=== PATIENT | female | born 1965 | race African-American/Black ===

== ENCOUNTER 2019-10-26 10:23 | Outpatient (CLI) | payer OTHER, SELFPAY ==
--- NOTE | ~2019-10-26 | MM_ITS ---
EXAMINATION: MM screening sea BI w bella HISTORY: Screening mammogram, history of left breast cancer TECHNIQUE: Craniocaudal and mediolateral oblique 3-D tomosynthesis images were obtained and synthetic 2-D images were generated. CAD analysis was submitted and interpreted. COMPARISON: 09/06/2018, 08/19/2017, 08/02/2016 BREAST PARENCHYMAL COMPOSITION: The breasts are heterogeneously dense, which may obscure small masses . FINDINGS: Stable lumpectomy changes are noted in the left breast. There is no evidence of suspicious mass, calcification, or architectural distortion to suggest malignancy in either breast. There has be en no suspicious interval change. IMPRESSION: 1. No mammographic evidence of malignancy. 2. Recommend routine screening mammography in one year. BI-RADS Category 2: Benign finding(s). Reviewed, dictated and finalized at location A.
== END 2019-10-26 10:24 | disposition home or self-care (01) ==
LOC: ANHIMG 10:26
PROVIDERS: PCP Family Medicine Adolescent Medicine; Visit Provider Family Medicine Adolescent Medicine
DX: Z12.31 Encounter for screening mammogram for malignant neoplasm of breast (principal)
CPT/HCPCS: 77063; 77067

== ENCOUNTER → 2020-06-26 07:57 | Outpatient (CLI) | payer OTHER, SELFPAY ==
--- NOTE | ~2020-06-26 | MMUS_ITS ---
EXAMINATION: MM diagnostic sea BI w bella, US breast BI limited HISTORY: Palpable bilateral breast abnormalities. Breast pain. TECHNIQUE: Additional 3-D tomosynthesis images of the breasts were performed and synthetic 2-D images were generated. CAD analysis was submitted and interpreted. High resolution limited bilateral breast ultrasound was performed. COMPARISON: Comparison to multiple prior studies sequentially, with oldest reviewed study dated 07/29. BREAST PARENCHYMAL COMPOSITION: The breasts are heterogenously dense, which may obscure small masses. FINDINGS: MAMMOGRAPHIC FINDINGS: There are benign bilateral breast calcifications. There is a benign partially calcified mass in the u pper outer quadrant of the right breast with a shell calcification, likely benign oil cysts. No discr ete mass in the left breast. There are surgical changes in the lower central aspect of the left breas t posteriorly. ULTRASOUND: Right breast ultrasound: At 12:00, 3.5 cm from the nipple, there is an oval circumscribed hypoechoic mass with posterior shadowing measuring 7 x 6 x 7 mm. No associated vascularity. Left breast ultrasound: At 2:00, 3.5 cm from the nipple in the area of palpable concern there is a 5 mm hypoechoic mass with posterior shadowing. Irregular margins. No internal vascularity. IMPRESSION: 1. Benign mass in the upper outer quadrant of the right breast corresponds the palpable abnormality, compatible with an oil cyst. There is corresponding mass by ultrasound measuring up to 7 mm. Routine follow-up of the right breast recommended. 2. Irregular shaped hypoechoic mass of the left breast corresponds to the area of palpable concern me asuring up to 5 mm. Ultrasound-guided left breast biopsy recommended. BI-RADS category 4, suspicious findings. Reviewed, dictated and finalized at location A. IMPRESSION: 1. Benign mass in the upper outer quadrant of the right breast corresponds the palpable abnormality, compatible with an oil cyst. There is corresponding mass by ultrasound measuring up to 7 mm. Routine follow-up of the right breast recom mended. 2. Irregular shaped hypoechoic mass of the left breast corresponds to the area of palpable concern measuring up to 5 mm. Ultrasound-guided left breast biopsy recommended. BI-RADS category 4, suspicious findings.
== END ==
PROVIDERS: PCP Family Medicine Adolescent Medicine; Visit Provider Surgery
DX: N64.59 Other signs and symptoms in breast (principal); R92.8 Other abnormal and inconclusive findings on diagnostic imaging of breast
CPT/HCPCS: 76642; 77062; 77066; G0279

== ENCOUNTER 2020-07-01 09:27 | Outpatient (CLI) | payer OTHER, SELFPAY ==
--- NOTE | ~2020-07-01 | MR_ITS ---
EXAMINATION: MR breast BI wo/w con INDICATION: Personal history of malignant neoplasm of the breast TECHNIQUE: Axial VIBRANT pre and dynamic post contrast, Sagittal VIBRANT post contrast, Axial T2 STIR ASSET COMPARISON: 06/17/2011 CONTRAST: Multihance, 13 cc BREAST COMPOSITION: Heterogeneous fibroglandular tissue FINDINGS: A 14 mm cyst is noted in the right hepatic lobe. RIGHT BREAST: There is mild background parenchymal enhancement. No abnormal enhancement is present af ter contrast administration. No pathologically enlarged axillary or internal mammary lymph nodes are identified. LEFT BREAST: There is mild background parenchymal enhancement. No abnormal enhancement is present aft er contrast administration. No pathologically enlarged axillary or internal mammary lymph nodes are i dentified. Architectural distortion and skin thickening of the left breast are consistent with prior breast cancer therapy. No suspicious mass is identified to correlate with the ultrasound finding desc ribed on recent diagnostic workup. IMPRESSION: 1. Postsurgical changes in the left breast without MRI evidence of malignancy. BI-RADS Category 2: Benign finding(s). Reviewed, dictated and finalized at location A.
[2020-07-01 10:27] LABS: Estimated Glomerular Filt Rate > 60
== END 2020-07-01 09:28 | disposition home or self-care (01) ==
PROVIDERS: PCP Family Medicine Adolescent Medicine; Visit Provider Surgery
DX: N60.11 Diffuse cystic mastopathy of right breast (principal); Z85.3 Personal history of malignant neoplasm of breast; N60.12 Diffuse cystic mastopathy of left breast; N63.0 Unspecified lump in unspecified breast; Z98.890 Other specified postprocedural states
CPT/HCPCS: 77049; A9577; C8908

== ENCOUNTER 2020-07-09 11:17 | Outpatient (CLI) | payer OTHER, SELFPAY ==
--- NOTE | ~2020-07-09 | US_ITS ---
EXAMINATION: Consultation US HISTORY: Patient with history of left breast cancer presents for biopsy of a left breast mass. TECHNIQUE: Limited left breast ultrasound was performed. COMPARISON: 06/26/2020 and MRI dated 07/01/2020 FINDINGS: No discrete mass is identified for biopsy targeting. With real-time scanning, the area ques tioned on recent diagnostic evaluation appears to reflect a scar from patient's prior reduction mammo plasty. IMPRESSION: No specific ultrasound targeted identified for biopsy. Clinical follow-up and routine screening are r ecommended. BI-RADS Category 2: Benign finding(s). Reviewed, dictated and finalized at location A. IMPRESSION: No specific ultrasound targeted identified for biopsy. Clinical follow-up and r outine screening are recommended. BI-RADS Category 2: Benign finding(s).
== END 2020-07-09 11:18 | disposition home or self-care (01) ==
PROVIDERS: PCP Family Medicine Adolescent Medicine; Visit Provider Surgery
DX: N63.0 Unspecified lump in unspecified breast (principal)
CPT/HCPCS: 99199

== ENCOUNTER 2021-02-04 11:54 | Outpatient (CLI) | payer OTHER, SELFPAY ==
--- NOTE | ~2021-02-04 | MMUS_ITS ---
EXAMINATION: MM diagnostic sea LT w bella, US breast LT complete HISTORY: Personal history of malignant neoplasm of the breast; status post partial left mastectomy in 2012 TECHNIQUE: Full field and spot ML, MLO and craniocaudal 3-D tomosynthesis images of the left breast w ere performed and synthetic 2-D images were generated. CAD analysis was submitted and interpreted. Hi gh resolution complete left breast ultrasound including all 4 quadrants and subareolar area was perfo rmed. COMPARISON: 07/01/2020 MRI breast 06/26/2020 bilateral diagnostic mammogram and limited bilateral breast ultrasound 10/26/2019, 09/06/2018, 08/19/2017 bilateral digital screening mammogram examinations BREAST PARENCHYMAL COMPOSITION: The breasts are heterogeneously dense, which may obscure small masses . FINDINGS: MAMMOGRAPHIC FINDINGS: Surgical clips are noted deep in the posterior mid to lower central left breast post left partial mas tectomy. There is a biopsy marker in the upper outer left breast. There is stable asymmetry and architectural distortion on the left likely secondary to postoperative change. No interval suspicious mass or new architectural distortion or new retraction is evident. The re are scattered benign calcifications. No significant change since recent mammograms is noted. ULTRASOUND: No suspicious mass or shadowing is detected. IMPRESSION: 1. Status post left partial mastectomy for breast cancer; no evidence of malignancy 2. Routine mammographic screening is recommended, in additional to any additional imaging follow-up a s appropriate for this patient with personal history of breast cancer BI-RADS Category 2: Benign finding(s). Reviewed, dictated and finalized at location A. IMPRESSION: 1. Status post left partial mastectomy for breast cancer; no evidence of malign neal 2. Routine mammographic screening is recommended, in additional to any addition al imaging follow-up as appropriate for this patient with personal history of b reast cancer BI-RADS Category 2: Benign finding(s).
== END 2021-02-04 11:55 | disposition home or self-care (01) ==
LOC: ANHIMG 11:57
PROVIDERS: PCP Family Medicine Adolescent Medicine; Visit Provider Surgery
DX: Z85.3 Personal history of malignant neoplasm of breast (principal)
CPT/HCPCS: 76641; 77061; 77065; G0279

== ENCOUNTER 2021-04-20 14:34 | Emergency (ER) | payer OTHER, SELFPAY ==
[2021-04-20 14:43] VITALS: BP 196/126; PULSE 76; RESP 20; TEMP 36.2; O2SAT 100
--- NOTE | 2021-04-20 16:23 | ECG_ITS ---
Measurements Intervals [place] Rate: 74 P: 28 WA: 150 QRS: -14 QRSD: 75 T: 8 QT: 398 QTc: 443 Interpretive Statements SINUS RHYTHM DELAYED PRECORDIAL R/S TRANSITION BASELINE ARTIFACT- I, III, AVL BORDERLINE ECG Electronically Signed On 04-20-2021 17:05:47 [employer] SYSTEM[employer] TECHNICIAN by Romeo Denson D.O.
== END 2021-04-20 17:20 | disposition left against medical advice (07) ==
PROVIDERS: Emergency Provider Emergency Medicine; PCP Family Medicine Adolescent Medicine
DX: I10 Essential (primary) hypertension (principal)
CPT/HCPCS: 93005; 99199

== ENCOUNTER 2021-09-25 08:58 | Outpatient (CLI) | payer OTHER, SELFPAY ==
--- NOTE | ~2021-09-25 | MM_ITS ---
EXAMINATION: MM screening sea BI w bella HISTORY: Screening TECHNIQUE: Craniocaudal and mediolateral oblique 3-D tomosynthesis images were obtained and synthetic 2-D images were generated. CAD analysis was submitted and interpreted. COMPARISON: Comparison to multiple prior studies sequentially, with oldest reviewed study dated 08/02. BREAST PARENCHYMAL COMPOSITION: The breasts are heterogeneously dense, which may obscure small masses . FINDINGS: There is no evidence of suspicious mass, calcification, or architectural distortion to sugg est malignancy in either breast. There has been no suspicious interval change. IMPRESSION: 1. No mammographic evidence of malignancy. 2. Recommend routine screening mammography in one year. BI-RADS Category 1: Negative Reviewed, dictated and finalized at location A.
== END 2021-09-25 08:59 | disposition home or self-care (01) ==
LOC: ANHIMG 08:59
PROVIDERS: PCP Family Medicine Adolescent Medicine; Visit Provider Surgery
DX: Z12.31 Encounter for screening mammogram for malignant neoplasm of breast (principal); Z85.3 Personal history of malignant neoplasm of breast
CPT/HCPCS: 77063; 77067

== ENCOUNTER 2021-10-02 10:26 | Outpatient (CLI) | payer OTHER, SELFPAY ==
--- NOTE | ~2021-10-02 | US_ITS ---
US breast LT complete DATE: 10/02/2021 10:57 INDICATION: Left breast pain at 2-4:00 area TECHNIQUE: Real-time imaging of complete left breast including all 4 quadrants and subareolar area COMPARISON: 09/25/2021 bilateral screening mammogram 02/04/2021 diagnostic left mammogram and complete left breast ultrasound 07/01/2020 bilateral MR breast examination 06/26/2020 bilateral diagnostic mammography and bilateral Limited breast ultrasound FINDINGS: At the area of clinical complaint of left breast pain at 1:00 2 cm from nipple there is an antiparallel irregular approximately 5 mm wide 6.4 mm deep hypoechoic area with posterior shadowing. Ultrasound-guided biopsy is recommended. There is some architectural distortion and shadowing at 6:00 at the partial mastectomy scar. IMPRESSION: Irregular anti-parallel 5 x 6.4 mm hypoechoic area with posterior shadowing at 1:00 2 cm from nipple; ultrasound-guided biopsy is recommended. BI-RADS Category 4: Suspicious abnormality; biopsy should be considered Dr. Lerma telephoned the report and ultrasound-guided biopsy recommendation of the left breast at 1:00 2 cm from the nipple on 09/28/[address] Lomax's Temperature Regulator Elissa. Reviewed, dictated and finalized at Location A. Reviewed, dictated and finalized at location A. IMPRESSION: Irregular anti-parallel 5 x 6.4 mm hypoechoic area with posterior s hadowing at 1:00 2 cm from nipple; ultrasound-guided biopsy is recommended. BI-RADS Category 4: Suspicious abnormality; biopsy should be considered Dr. Lerma telephoned the report and ultrasound-guided biopsy recommendation of t he left breast at 1:00 2 cm from the nipple on 09/28/20[address] Jane schultz's Temperature Regulator Elissa.
== END 2021-10-02 10:27 | disposition home or self-care (01) ==
PROVIDERS: PCP Family Medicine Adolescent Medicine; Visit Provider Surgery
DX: N64.4 Mastodynia (principal); R92.8 Other abnormal and inconclusive findings on diagnostic imaging of breast
CPT/HCPCS: 76641

== ENCOUNTER 2021-10-20 08:42 | Outpatient (CLI) | payer OTHER, SELFPAY ==
--- NOTE | ~2021-10-20 | MMUS_ITS ---
EXAMINATION: US breast biopsy LT w image, MM post biopsy invasive LT DATE: 10/20/2021 10:15 (accession [id number]), 10/20/2021 10:14 (accession [id number]) INDICATION: Left breast pain and area of posterior acoustic shadowing in the upper outer quadrant of the left breast Ultrasound-guided core biopsy is requested to evaluate for malignancy. TECHNIQUE AND FINDINGS: The risks and potential benefits of the procedure were discussed with the patient including bleeding and infection. A time out was performed. The skin of the left breast was prepared and draped in usual sterile fashion. 1% lidocaine was used for superficial anesthesia. 1% lidocaine with epinephrine was used for deep anesthesia. A vacuum-assisted biopsy gun needle was advanced through to the outer edge of the region of interest from a lateral approach utilizing sonographic guidance. A total of three tissue core samples were obt ained through the lesion. A tissue marker clip was then placed at the biopsy site. Hemostasis was ach ieved. A sterile bandage was applied. The patient tolerated procedure well and there was no evidence of immediate complication. The patient was given verbal instructions to return to the contact our institution in the event of severe breast pain or rapid breast enlargement. A two view left breast mammogram was obtained to document tissue m arker clip placement. IMPRESSION: 1. Successful ultrasound-guided vacuum-assisted biopsy of left breast mass with tissue marker placeme nt. Reviewed, dictated and finalized at location A. IMPRESSION: 1. Successful ultrasound-guided vacuum-assisted biopsy of left breast mass with tissue marker placement.
== END 2021-10-20 08:43 | disposition home or self-care (01) ==
PROVIDERS: PCP Family Medicine Adolescent Medicine; Visit Provider Surgery
DX: N63.0 Unspecified lump in unspecified breast (principal)
CPT/HCPCS: 19083; 88305; A4648

== ENCOUNTER 2022-06-11 12:51 | Emergency (ER) | payer OTHER, SELFPAY ==
--- NOTE | ~2022-06-11 | XR_ITS ---
EXAMINATION: XR ankle LT min 3V DATE: 06/11/2022 13:29 INDICATION: Left ankle pain. TECHNIQUE: 4 views of left ankle were obtained. COMPARISON: None. FINDINGS: Bone alignment is normal. No fracture. Joint spaces are normal. IMPRESSION: 1. Normal left ankle. Reviewed, dictated and finalized at location A. T OF [facility] CLEARER IMPRESSION: 1. Normal left ankle.
[2022-06-11 13:01] VITALS: BP 152/92; PULSE 70; RESP 14; TEMP 35.8; O2SAT 100
[2022-06-11 13:06] VITALS: BP 152/92; PULSE 70; RESP 14; TEMP 35.8; O2SAT 100
--- NOTE | 2022-06-11 13:11 | ED.LOWEXIN ---
HPI - Extremity Injury (Lower) General Chief Complaint: Extremity Injury, Lower Stated Complaint: left foot pain Time Seen by Provider: 06/11/22 13:11 Source: patient Mode of arrival: ambulatory Limitations: no limitations History of Present Illness HPI Narrative: 56-year-old female presents with complaint pain to left ankle, lateral aspect. States she noticed pain when she woke up this morning. Denies injury. Denies any new footwear or exercises. Took 800 mg ibuprofen prior to arrival. ambulatory with limp. 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 all systems reviewed and negative except as noted above. Related Data Allergies Allergy/AdvReac Type Severity Reaction Status Date / Time Sulfa (Sulfonamide Allergy Unknown swelling Verified 06/11/22 13:06 Antibiotics) Review of Systems Review of Systems: CONSTITUTIONAL: Denies fever, chills, or sweats. EYES: Denies visual changes, redness, or discharge. ENT: Denies rhinorrhea, congestion, sore throat, or otalgia. CARDIOVASCULAR: Denies chest pain, palpitations, or edema. RESPIRATORY: Denies cough or dyspnea. GASTROINTESTINAL: Denies abdominal pain, nausea, vomiting, or diarrhea. GENITOURINARY: Denies dysuria or hematuria. SKIN: Denies rash or itching. MUSCULOSKELETAL: Denies back pain . Reports pain to left lateral ankle. NEUROLOGIC: Denies headache, numbness, or weakness. PSYCHIATRIC: Denies anxiety or depression. All other systems reviewed are negative, except as documented in HPI. [facility] Past Medical History Medical History Breast CA History of blood transfusion History of kidney stones HTN (hypertension) Surgical History Surgical History H/O breast augmentation fat transfer H/O dilation and curettage H/O lumpectomy H/O: hysterectomy History of bilateral breast reduction surgery Family History Family History Father Diabetes mellitus Hypertension Mother Diabetes mellitus Hypertension Cerebrovascular accident Sibling Multiple sclerosis Other Diabetes mellitus Cerebrovascular accident Hypertension Other Acute myocardial infarction Other Family history of throat cancer Social History Social History (Reviewed 12/09/21 @ 14:07 by KAYLIN Hatch Smoking status: Current every day smoker Tobacco type: cigarettes Second hand tobacco smoke exposure: Yes Alcohol intake: current Drinks per week: 14 Substance use: never Substance use type: does not use Living arrangements: with family Occupation/Education: occupation 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 There is no relevant family history pertinent to the presenting complaint. Exam Narrative: GENERAL: This is a well-nourished, well-developed patient, in no apparent distress. HEAD: normocephalic, atraumatic. EYES: PERRL. Sclera clear/white. Vision is grossly intact. EARS: External ears normal NOSE: External nose normal NECK: Neck supple, non-tender without lymphadenopathy, masses or thyromegaly. CARDIOVASCULAR: Regular rate and rhythm without murmurs, gallops, or rubs. RESPIRATORY: Clear to auscultation. Breath sounds equal bilaterally. No wheezes, rales, or rhonchi. SKIN: warm, Dry, intact with no suspicious lesions or rash, good texture and turgor. NEURO: awake, alert, and oriented to person, place and time. There were no obvious focal neurologic abnormalities. EXTREMITIES:Tenderness along the left ATF t
== END 2022-06-11 13:52 | disposition home or self-care (01) ==
PROVIDERS: Emergency Provider Nurse Practitioner Family; PCP Family Medicine Adolescent Medicine
DX: S96.912A Strain of unspecified muscle and tendon at ankle and foot level, left foot, initial encounter (principal); I10 Essential (primary) hypertension; Z85.3 Personal history of malignant neoplasm of breast; F17.210 Nicotine dependence, cigarettes, uncomplicated; X58.XXXA Exposure to other specified factors, initial encounter
CPT/HCPCS: 73610; 99213; G0463

== ENCOUNTER 2022-09-29 10:17 | Outpatient (CLI) | payer OTHER, SELFPAY ==
--- NOTE | ~2022-09-29 | MM_ITS ---
EXAMINATION: MM screening sea BI w bella HISTORY: Screening mammogram TECHNIQUE: Craniocaudal and mediolateral oblique 3-D tomosynthesis images were obtained and synthetic 2-D images were generated. CAD analysis was submitted and interpreted. COMPARISON: 10/20/2021 left ultrasound guided breast biopsy; results were benign fibrofatty tissue. 09/28/2021 complete left breast ultrasound 09/25/2021 bilateral screening mammogram 02/04/2021 diagnostic left mammogram and complete left breast ultrasound 07/01/2020 MRI breast 06/26/2020 diagnostic mammogram and Limited bilateral breast ultrasound 10/26/2019 bilateral screening mammogram BREAST PARENCHYMAL COMPOSITION: The breasts are heterogeneously dense, which may obscure small masses . FINDINGS: There is stable postsurgical changes from left partial mastectomy since 10/26/2019. There is a biopsy marker in the upper inner left breast. There are scattered bilateral benign calcifications. There is no evidence of suspicious mass, calcifi cation, or architectural distortion to suggest malignancy in either breast. There has been no suspici ous interval change. IMPRESSION: 1. No mammographic evidence of malignancy. 2. Recommend routine screening mammography in one year. BI-RADS Category 2: Benign finding(s). Reviewed, dictated and finalized at location A.
== END 2022-09-29 10:18 | disposition home or self-care (01) ==
LOC: ANHIMG 10:20
PROVIDERS: PCP Family Medicine Adolescent Medicine; Visit Provider Surgery
DX: Z12.31 Encounter for screening mammogram for malignant neoplasm of breast (principal)
CPT/HCPCS: 77063; 77067

== ENCOUNTER 2022-10-29 08:25 | Emergency (ER) | payer OTHER, SELFPAY ==
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
[2022-10-29 08:43] VITALS: BP 148/100; PULSE 77; RESP 16; TEMP 36.9; O2SAT 100
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
== END 2022-10-29 09:41 | disposition home or self-care (01) ==
PROVIDERS: Emergency Provider Nurse Practitioner; PCP Family Medicine Adolescent Medicine
DX: S16.1XXA Strain of muscle, fascia and tendon at neck level, initial encounter (principal); S39.012A Strain of muscle, fascia and tendon of lower back, initial encounter; V43.52XA Car driver injured in collision with other type car in traffic accident, initial encounter; I10 Essential (primary) hypertension; Z85.3 Personal history of malignant neoplasm of breast; F17.210 Nicotine dependence, cigarettes, uncomplicated
CPT/HCPCS: 72040; 99213; G0463

== ENCOUNTER 2023-11-04 09:55 | Outpatient (CLI) | payer OTHER, SELFPAY ==
--- NOTE | ~2023-11-04 | MM_ITS ---
EXAMINATION: MM screening sea BI w bella HISTORY: Screening TECHNIQUE: Craniocaudal and mediolateral oblique 3-D tomosynthesis images were obtained and synthetic 2-D images were generated. CAD analysis was submitted and interpreted. COMPARISON: Comparison to multiple prior studies sequentially, with oldest reviewed study dated 10/25. BREAST PARENCHYMAL COMPOSITION: Not dense: There are scattered areas of fibroglandular density. FINDINGS: There is increasing density of asymmetric tissue medial aspect of the left breast on CC vie w. The right breast is stable without evidence for malignancy. IMPRESSION: 1. Increasing density of left breast global asymmetry located medially on CC view. 2. Additional mammographic views and possible breast ultrasound are recommended. BI-RADS Category 0: Incomplete: Needs additional imaging evaluation. Reviewed, dictated and finalized at location B. IMPRESSION: 1. Increasing density of left breast global asymmetry located medially on CC vi ew. 2. Additional mammographic views and possible breast ultrasound are recommended . BI-RADS Category 0: Incomplete: Needs additional imaging evaluation.
== END 2023-11-04 09:56 | disposition home or self-care (01) ==
LOC: ANHIMG 09:58
PROVIDERS: PCP Family Medicine Adolescent Medicine; Visit Provider Family Medicine Adolescent Medicine
DX: Z12.31 Encounter for screening mammogram for malignant neoplasm of breast (principal); R92.8 Other abnormal and inconclusive findings on diagnostic imaging of breast
CPT/HCPCS: 77063; 77067

== ENCOUNTER 2023-11-10 09:30 | Outpatient (CLI) | payer OTHER, SELFPAY ==
--- NOTE | ~2023-11-10 | XR_ITS ---
Bilateral temporal mandibular joint radiographs, with open and closed mouth positioning Clinical history: Arthralgia of right TMJ FINDINGS: No fracture or dislocation seen. There is normal anterior translation of the bilateral marybel ibular condyles on open mouth views. No significant degenerative change. Soft tissues are unremarkabl e. IMPRESSION: No significant abnormality seen. Reviewed, dictated and finalized at location .
== END 2023-11-10 09:31 | disposition home or self-care (01) ==
LOC: ANHIMG 09:31
PROVIDERS: PCP Family Medicine Adolescent Medicine; Visit Provider Nurse Practitioner Family
DX: M26.621 Arthralgia of right temporomandibular joint (principal)
CPT/HCPCS: 70330

== ENCOUNTER 2023-11-24 12:10 | Outpatient (CLI) | payer OTHER, SELFPAY ==
--- NOTE | ~2023-11-24 | MMUS_ITS ---
EXAMINATION: MM diagnostic sea LT w bella, US breast LT complete HISTORY: Follow-up left breast asymmetry TECHNIQUE: Additional 3-D tomosynthesis images of the left breast were performed and synthetic 2-D im ages were generated. CAD analysis was submitted and interpreted. High resolution complete left breast ultrasound was performed. COMPARISON: No prior studies for comparison. BREAST PARENCHYMAL COMPOSITION: Dense: The breasts are heterogeneously dense, which may obscure small masses FINDINGS: MAMMOGRAPHIC FINDINGS: There is distortion in the left breast in the upper outer quadrant, consistent with previous lumpecto my site. There is dense fibroglandular tissue inferiorly in the left breast. ULTRASOUND: Complete US of all 4 quadrants of the breast/s and retroareolar region was reviewed. There is irregul ar hypoechoic soft tissue in the left breast at 1:00, 4 cm from the nipple in the area of previous shen mpectomy. This corresponds to area of patient pain. No other discrete areas of abnormal echogenicity are seen. No focal solid or cystic masses. IMPRESSION: 1. Probable benign postoperative changes of the left breast. 2. Recommend 6 month follow-up diagnostic left mammogram Limited left breast ultrasound recommended. BI-RADS category 3, probably benign findings. Reviewed, dictated and finalized at location B. IMPRESSION: 1. Probable benign postoperative changes of the left breast. 2. Recommend 6 month follow-up diagnostic left mammogram Limited left breast ul trasound recommended. BI-RADS category 3, probably benign findings.
== END 2023-11-24 12:11 | disposition home or self-care (01) ==
LOC: ANHIMG 12:10
PROVIDERS: PCP Family Medicine Adolescent Medicine; Visit Provider Family Medicine Adolescent Medicine
DX: R92.8 Other abnormal and inconclusive findings on diagnostic imaging of breast (principal)
CPT/HCPCS: 76641; 77061; 77065; G0279

== ENCOUNTER 2024-05-28 10:35 | Outpatient (CLI) | payer OTHER, SELFPAY ==
--- NOTE | ~2024-05-28 | MMUS_ITS ---
EXAMINATION: US breast LT limited, MM diagnostic sea BI w bella HISTORY: Six-month follow-up left breast asymmetry TECHNIQUE: Additional 3-D tomosynthesis images of the breasts were performed and synthetic 2-D images were generated. CAD analysis was submitted and interpreted. High resolution Limited left breast ultr asound was performed. COMPARISON: Comparison to multiple prior studies sequentially, with oldest reviewed study dated 01/10. BREAST PARENCHYMAL COMPOSITION: Not dense: There are scattered areas of fibroglandular density. FINDINGS: MAMMOGRAPHIC FINDINGS: The breasts are stable. No new masses, calcifications or architectural distortion in either breast to suggest malignancy. There are postsurgical changes in the lower aspect of the left breast. ULTRASOUND: Limited left breast ultrasound: At 1:00, 4 cm from the nipple there is a heterogeneous hypoechoic are a with posterior shadowing and no significant internal vascularity. This area has similar morphology to ultrasound dated 11/24/2023. IMPRESSION: 1. Stable bilateral mammogram and Limited left breast ultrasound. 2. Given one year of interval stability, recommend 12 month followup bilateral mammogram and Limited left breast ultrasound. BI-RADS category 3, probably benign findings. Reviewed, dictated and finalized at location B. 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 Stable bilateral mammogram and Limited left breast ultrasound. 2. Given one year of interval stability, recommend 12 month followup bilateral mammogram and Limited left breast ultrasound. BI-RADS category 3, probably benign findings.
--- OUTSIDE RECORDS SUMMARY | 2024-05-28 13:43 | XMS_ITS | Continuity of Care Document ---
Author Name [facility] Organization 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 Unavailable Unavailable Problems Combined list of problems from [facility] and [facility] facilities. It does not include entries that were removed or entered in error. Problem Status Onset Date Problem Type Date of Resolution Comments Source Benign essential hypertension Active Condition [facility] Chronic depression Active Condition [facility] Sciatica Active Condition [facility] Diagnosis: ICD-10-CM F43.12 Post-traumatic stress disorder, chronic Active Diagnosis [facility] Diagnosis: ICD-10-CM F32.A Depression, unspecified Active Diagnosis [facility] Diagnosis: ICD-10-CM M47.26 Other spondylosis with radiculopathy, lumbar region Active Diagnosis [facility] Diagnosis: ICD-10-CM M54.32 Sciatica, left side Active Diagnosis [facility] Mario RUBIO [facility] Diagnosis: ICD-10-CM F33.1 Major depressive disorder, recurrent, moderate Active Diagnosis [facility] Rina POSADA [facility] Diagnosis: ICD-10-CM Z23 Encounter for immunization Active Diagnosis [facility] Diagnosis: ICD-10-CM M51.36 Other intervertebral disc degeneration, lumbar region Active Diagnosis [facility] Diagnosis: ICD-10-CM M54.89 Other dorsalgia Active Diagnosis [facility] Medications Combined list of outpatient medications from [facility] facilities.Medications provided include 1) outpatient medications from the last 15 months, and 2) patient-reported medications. Medication Details Route Status Patient Instructions Prescription Expires Prescription Number Last Dispense Date Ordering Provider Order Date Order Qty Source amLODIPine (U/D) 5 MG ORAL TAB TAKE ONE TABLET BY MOUTH ONCE A DAY Active 07/15/2024 [id number] SYDNEY MCGHEE 2023 90 [facility] Divcarlosio n AMLODIPINE BESYLATE 5MG TAB TAKE ONE TABLET BY MOUTH ONCE A DAY ORAL ACTIVE 07/15/2024 [id number] TAZIN GRID D 2023 90 [facility] AMLODIPINE BESYLATE 5MG TAB TAKE ONE TABLET BY MOUTH ONCE A DAY ORAL ACTIVE TAZIN GRID D 2021 [facility] BUPROPION HCL 150MG 12HR TAB,SA TAKE TWO TABLETS BY MOUTH ONCE A DAY FOR DEPRESSI ON SWALLOW WHOLE - DO NOT CRUSH OR CHEW. ORAL ACTIVE 05/28/2024 [id number] 4 GBADEBO-TAHMINA KELLY VELIA 2023 180 [facility] LIDOCAINE 5% PATCH APPLY 1 PATCH TO SKIN SITE ONCE A DAY FOR LOCAL ANESTHES IA APPLY PATCH AND PRESS FIRMLY FOR 10-15 SECONDS. KEEP ON FOR 12 HOURS THEN REMOVE PATCH FOR 12 HOURS. TRANSD ERMAL ACTIVE 12/08/2024 [id number] TAZIN GRID D 2023 30 [facility] METOPROLOL SUCCINATE 200MG TAB,SA TAKE ONE-HALF TABLET BY MOUTH ONCE A DAY ORAL ACTIVE TAZIN GRID D 2021 [facility] NALTREXONE (EQV-REVIA) 50MG TAB TAKE ONE-HALF TABLET BY MOUTH ONCE A DAY FOR ASSISTAN CE WITH DEPENDEN CY ORAL ACTIVE 04/21/2025 [id number] 5 GBADEBO-G TAHMINA HIGHTOWER VELIA 2024 15 [facility] NALTREXONE (EQV-REVIA) 50MG TAB TAKE ONE-HALF TABLET BY MOUTH ONCE A DAY FOR 4 DAYS, THEN TAKE ONE TABLET ONCE A DAY FOR ASSISTAN CE WITH DEPENDEN CY ORAL DISCONT INUED (EDIT) 02/28/2025 [id number] 4 GBADEBO-G TAHMINA HIGHTOWER VELIA 2023 28 [facility] Allergies, Adverse Reactions, Alerts Combined list of allergies from [facility] and [facility] facilities. It does not include entries that were removed or entered in error. Substance Category Reaction Severity Reaction type Status Date Reported Comments Source No Known Allergies Drug allergy (disorder) active 03/28/2007 [place] [facility] Immunizations Combined list of available immunizations from the Department of Defense and Veterans Affairs facilities. Immunization Series Date Given Administered By Site Reaction Lot Number CVX Code Drug Coding And Reimbursement Specialist Status Comments Source COVID-19 (PFIZER), MRNA, LNP-S, PF, DIXON-SUCROSE, 30 MCG/0.3 ML (AGES 12+ YEARS) 2023 ZULEIMA DE LA ROSA S RIGHT DELTO ID [id number] 309 complet ed [facility] INFLUENZA, SPLIT VIRUS, TRIVALENT, PF 2023 ZULEIMA DE LA ROSA S LEFT DELTO ID [id number] 140 complet ed [facility] INFLUENZA, INJECTABLE, QUADRIVALENT, PRESERVATIVE FREE 2022 ROBBIE ABEL IN J RIGHT DELTO ID [id number] 150 complet ed [facility] COVID-19 (MODERNA), MRNA, LNP-S, BIVALENT BOOSTER, PF, 50 MCG/0.5 ML OR 25MCG/0.25 ML DOSE 1 2021 229 complet ed MOD; [id number]; 3 [facility] INFLUENZA, INJECTABLE, QUADRIVALENT 2021 158 complet ed [facility] COVID-19 (MODERNA), MRNA, LNP-S, PF, 100 MCG/0.5ML DOSE OR 50 MCG/0.25ML DOSE 3 2021 207 complet ed MOD; [id number]; 2 [facility] ZOSTER RECOMBINANT 2 2020 187 complet ed [facility] COVID-19 (MODERNA), MRNA, LNP-S, PF, 100 MCG OR 50 MCG DOSE 3 2020 207 complet ed [facility] INFLUENZA, UNSPECIFIED FORMULATION 2020 88 complet ed [facility] TDAP 2020 115 complet ed [facility] ZOSTER RECOMBINANT 1 2020 187 complet ed [facility] COVID-19 (MODERNA), MRNA, LNP-S, PF, 100 MCG/0.5 ML DOSE 2 2020 207 complet ed [facility] COVID-19 (MODERNA), MRNA, LNP-S, PF, 100 MCG/0.5 ML DOSE 1 2020 207 complet ed [facility] INFLUENZA, SEASONAL, INJECTABLE 1 2013 141 complet ed [facility] Results Combined list of recent chemistry, hematology and other laboratory results from Department of Defense and Veterans Affairs, ranging from 15 months to all on record, depending upon the facility. Order Name Results Value Reference Range Date Interpretation Specimen Comments Source CBC LEUKOCYTES [#/VOLUME] IN BLOOD BY AUTOMATED COUNT 8.3 10*3/u L 3.6 - 11.2 03/09 Specimen Type: BLOOD No comment entered. Ordering Provider: TONI MCGHEE RID Report Released Date/Time: Feb 28, 2024 02:54 PM Reporting Lab: [facility] [address] [facility] [phone] Performing Lab: [facility] [address] [place] [phone] [facility] CBC ERYTHROCYTES [#/VOLUME] IN BLOOD BY AUTOMATED COUNT 4.71 10*6/u L 3.60 - 5.00 03/09 Specimen Type: BLOOD No comment entered. Ordering Provider: TONI MCGHEE RID Report Released Date/Time: Feb 28, 2024 02:54 PM Reporting Lab: [facility] [address] [facility] [phone] Performing Lab: [facility] [address] [place] [phone] [facility] CBC HEMOGLOBIN [MASS/VOLUME ] IN BLOOD 13.6 g/dL 11.0 - 14.9 03/09 Specimen Type: BLOOD No comment entered. Ordering Provider: TONI MCGHEE RID Report Released Date/Time: Feb 28, 2024 02:54 PM Reporting Lab: [facility] [address] [place] [phone] Performing Lab: [address] [address] [facility] CBC HEMATOCRIT [VOLUME FRACTION] OF BLOOD 41.7 32.6 - 43.4 03/09 Specimen Type: BLOOD No comment entered. Ordering Provider: TONI MCGHEE RID Report Released Date/Time: Feb 28, 2024 02:54 PM Reporting Lab: [address] [phone] Performing Lab: [address] [phone] [facility] CBC MCV [ENTITIC VOLUME] BY AUTOMATED COUNT 88.5 fL 80.0 - 100.0 03/09 Specimen Type: BLOOD No comment entered. Ordering Provider: TONI MCGHEE RID Report Released Date/Time: Feb 28, 2024 02:54 PM Reporting Lab: [address] [phone] Performing Lab: [address] [address] [facility] CBC MCH [ENTITIC MASS] BY AUTOMATED COUNT 28.9 pg 27.0 - 34.0 03/09 Specimen Type: BLOOD No comment entered. Ordering Provider: TONI MCGHEE RID Report Released Date/Time: Feb 28, 2024 02:54 PM Reporting Lab: [facility] [address] [place] [phone] Performing Lab: [address] [address] [facility] CBC MCHC [MASS/VOLUME ] BY AUTOMATED COUNT 32.6 g/dL 33.0 - 36.0 03/09 L Specimen Type: BLOOD No comment entered. Ordering Provider: TONI MCGHEE RID Report Released Date/Time: Feb 28, 2024 02:54 PM Reporting Lab: [facility] [address] [place] [phone] Performing Lab: [facility] [address] [facility] [phone] [facility] CBC PLATELETS [#/VOLUME] IN BLOOD BY AUTOMATED COUNT 337 10*3/u L 150 - 400 03/09 Specimen Type: BLOOD No comment entered. Ordering Provider: TONI MCGHEE RID Report Released Date/Time: Feb 28, 2024 02:54 PM Reporting Lab: [facility] [address] [facility] [address] Performing Lab: [facility] [address] [facility] [phone] [facility] CBC PLATELET MEAN VOLUME [ENTITIC VOLUME] IN BLOOD BY AUTOMATED COUNT 9.6 fL 7.5 - 11.2 03/09 Specimen Type: BLOOD No comment entered. Ordering Provider: TONI MCGHEE RID Report Released Date/Time: Feb 28, 2024 02:54 PM Reporting Lab: [facility] [address] [facility] [address] Performing Lab: [facility] [address] [facility] [phone] [facility] CBC ERYTHROCYTE DISTRIBUTION WIDTH [RATIO] BY AUTOMATED COUNT 12.8 11.8 - 15.1 03/09 Specimen Type: BLOOD No comment entered. Ordering Provider: TONI MCGHEE RID Report Released Date/Time: Feb 28, 2024 02:54 PM Reporting Lab: [facility] [address] [facility] [phone] Performing Lab: [facility] [address] [facility] [address] [facility] CBC LYMPHOCYTES/ 100 LEUKOCYTES IN BLOOD BY AUTOMATED COUNT 33 03/09 Specimen Type: BLOOD No comment entered. Ordering Provider: TONI MCGHEE RID Report Released Date/Time: Feb 28, 2024 02:54 PM Reporting Lab: [facility] [address] [facility] [phone] Performing Lab: [facility] [address] [facility] [address] [facility] CBC MONOCYTES/10 0 LEUKOCYTES IN BLOOD BY AUTOMATED COUNT 7 03/09 Specimen Type: BLOOD No comment entered. Ordering Provider: TONI MCGHEE RID Report Released Date/Time: Feb 28, 2024 02:54 PM Reporting Lab: [facility] [address] [facility] [phone] Performing Lab: [facility] [address] [place] [phone] [facility] CBC NEUTROPHILS/ 100 LEUKOCYTES IN BLOOD BY AUTOMATED COUNT 59 03/09 Specimen Type: BLOOD No comment entered. Ordering Provider: TONI MCGHEE RID Report Released Date/Time: Feb 28, 2024 02:54 PM Reporting Lab: [facility] [address] [facility] [address] Performing Lab: [facility] [address] [place] [phone] [facility] CBC EOSINOPHILS/ 100 LEUKOCYTES IN BLOOD BY AUTOMATED COUNT 1 03/09 Specimen Type: BLOOD No comment entered. Ordering Provider: TONI MCGHEE RID Report Released Date/Time: Feb 28, 2024 02:54 PM Reporting Lab: [facility] [address] [facility] [phone] Performing Lab: [facility] [address] [place] [phone] [facility] CBC BASOPHILS/10 0 LEUKOCYTES IN BLOOD BY AUTOMATED COUNT 1 03/09 Specimen Type: BLOOD No comment entered. Ordering Provider: TONI MCGHEE RID Report Released Date/Time: Feb 28, 2024 02:54 PM Reporting Lab: [facility] [address] [facility] [phone] Performing Lab: [facility] [address] [place] [phone] [facility] CBC LYMPHOCYTES [#/VOLUME] IN BLOOD BY AUTOMATED COUNT 2.72 10*3/u L 0.77 - 4.50 03/09 Specimen Type: BLOOD No comment entered. Ordering Provider: TONI MCGHEE RID Report Released Date/Time: Feb 28, 2024 02:54 PM Reporting Lab: [facility] [address] [place] [phone] Performing Lab: [facility] [address] [place] [phone] [facility] CBC MONOCYTES [#/VOLUME] IN BLOOD BY AUTOMATED COUNT 0.57 10*3/u L 0.19 - 0.80 03/09 Specimen Type: BLOOD No comment entered. Ordering Provider: TONI MCGHEE RID Report Released Date/Time: Feb 28, 2024 02:54 PM Reporting Lab: [facility] [address] [place] [phone] Performing Lab: [facility] [address] [place] [phone] [place] [address] CBC NEUTROPHILS [#/VOLUME] IN BLOOD BY AUTOMATED COUNT 4.92 10*3/u L 2.10 - 8.00 03/09 Specimen Type: BLOOD No comment entered. Ordering Provider: TONI MCGHEE RID Report Released Date/Time: Feb 28, 2024 02:54 PM Reporting Lab: [facility] [address] [place] [phone] Performing Lab: [facility] [address] [place] [phone] [facility] CBC EOSINOPHILS [#/VOLUME] IN BLOOD BY AUTOMATED COUNT 0.06 10*3/u L 0.00 - 0.60 03/09 Specimen Type: BLOOD No comment entered. Ordering Provider: TONI MCGHEE RID Report Released Date/Time: Feb 28, 2024 02:54 PM Reporting Lab: [facility] [address] [place] [phone] Performing Lab: [facility] [address] [place] [phone] [facility] CBC BASOPHILS [#/VOLUME] IN BLOOD BY AUTOMATED COUNT 0.04 10*3/u L 0.00 - 0.20 03/09 Specimen Type: BLOOD No comment entered. Ordering Provider: TONI MCGHEE RID Report Released Date/Time: Feb 28, 2024 02:54 PM Reporting Lab: [facility] [address] [place] [phone] Performing Lab: [facility] [address] [facility] [phone] [facility] COMPREHENSI VE METABOLIC PANEL CREATININE [MASS/VOLUME ] IN SERUM OR PLASMA 0.67 mg/dL 0.6 - 1.1 03/09 Specimen Type: PLASMA Comment: No hemolysis noted. Ordering Provider: TONI MCGHEE RID Report Released Date/Time: Feb 28, 2024 02:54 PM Reporting Lab: [facility] [address] [place] [phone] Performing Lab: [facility] [address] [place] [phone] [place] [address] COMPREHENSI VE METABOLIC PANEL UREA NITROGEN [MASS/VOLUME ] IN SERUM OR PLASMA 13.3 mg/dL 9.0 - 25.0 03/09 Specimen Type: PLASMA Comment: No hemolysis noted. Ordering Provider: TONI MCGHEE RID Report Released Date/Time: Feb 28, 2024 02:54 PM Reporting Lab: [facility] [address] [place] [phone] Performing Lab: [facility] [address] [place] [phone] [facility] COMPREHENSI VE METABOLIC PANEL GLUCOSE [MASS/VOLUME ] IN SERUM OR PLASMA 86 mg/dL 72 - 99 03/09 Specimen Type: PLASMA Comment: No hemolysis noted. Ordering Provider: TONI MCGHEE RID Report Released Date/Time: Feb 28, 2024 02:54 PM Reporting Lab: [facility] [address] [place] [phone] Performing Lab: [facility] [address] [place] [phone] [facility] COMPREHENSI VE METABOLIC PANEL SODIUM [MOLES/VOLUM E] IN SERUM OR PLASMA 141 meq/L 136 - 145 03/09 Specimen Type: PLASMA Comment: No hemolysis noted. Ordering Provider: TONI MCGHEE RID Report Released Date/Time: Feb 28, 2024 02:54 PM Reporting Lab: [facility] [address] [facility] [phone] Performing Lab: [facility] [address] [facility] [phone] [facility] COMPREHENSI VE METABOLIC PANEL POTASSIUM [MOLES/VOLUM E] IN SERUM OR PLASMA 4.1 meq/L 3.5 - 5 03/09 Specimen Type: PLASMA Comment: No hemolysis noted. Ordering Provider: TONI MCGHEE RID Report Released Date/Time: Feb 28, 2024 02:54 PM Reporting Lab: [facility] [address] [place] [phone] Performing Lab: [facility] [address] [place] [phone] [facility] COMPREHENSI VE METABOLIC PANEL CHLORIDE [MOLES/VOLUM E] IN SERUM OR PLASMA 107 meq/L 98 - 107 03/09 Specimen Type: PLASMA Comment: No hemolysis noted. Ordering Provider: TONI MCGHEE RID Report Released Date/Time: Feb 28, 2024 02:54 PM Reporting Lab: [facility] [address] [place] [phone] Performing Lab: [facility] [address] [place] [phone] [facility] COMPREHENSI VE METABOLIC PANEL CARBON DIOXIDE, TOTAL [MOLES/VOLUM E] IN SERUM OR PLASMA 24 meq/L 22 - 31 03/09 Specimen Type: PLASMA Comment: No hemolysis noted. Ordering Provider: TONI MCGHEE RID Report Released Date/Time: Feb 28, 2024 02:54 PM Reporting Lab: [facility] [address] [place] [phone] Performing Lab: [facility] [address] [place] [phone] [facility] COMPREHENSI VE METABOLIC PANEL CALCIUM [MASS/VOLUME ] IN SERUM OR PLASMA 10.0 mg/dL 8.4 - 10.4 03/09 Specimen Type: PLASMA Comment: No hemolysis noted. Ordering Provider: TONI MCGHEE RID Report Released Date/Time: Feb 28, 2024 02:54 PM Reporting Lab: [facility] [address] [facility] [phone] Performing Lab: [facility] [address] [facility] [address] [facility] COMPREHENSI VE METABOLIC PANEL PROTEIN [MASS/VOLUME ] IN SERUM OR PLASMA 7.6 g/dL 6 - 8.6 03/09 Specimen Type: PLASMA Comment: No hemolysis noted. Ordering Provider: TONI MCGHEE RID Report Released Date/Time: Feb 28, 2024 02:54 PM Reporting Lab: [facility] [address] [facility] [phone] Performing Lab: [facility] [address] [facility] [phone] [facility] COMPREHENSI VE METABOLIC PANEL ALBUMIN [MASS/VOLUME ] IN SERUM OR PLASMA 4.4 g/dL 3.4 - 5 03/09 Specimen Type: PLASMA Comment: No hemolysis noted. Ordering Provider: TONI MCGHEE RID Report Released Date/Time: Feb 28, 2024 02:54 PM Reporting Lab: [facility] [address] [facility] [phone] Performing Lab: [facility] [address] [facility] [address] [facility] COMPREHENSI VE METABOLIC PANEL BILIRUBIN.TO CLAYTON [MASS/VOLUME ] IN SERUM OR PLASMA 0.9 mg/dL 0.2 - 1.2 03/09 Specimen Type: PLASMA Comment: No hemolysis noted. Ordering Provider: TONI MCGHEE RID Report Released Date/Time: Feb 28, 2024 02:54 PM Reporting Lab: [facility] [address] [facility] [phone] Performing Lab: [facility] [address] [facility] [address] [facility] COMPREHENSI VE METABOLIC PANEL ALKALINE PHOSPHATASE [ENZYMATIC ACTIVITY/VOL UME] IN SERUM OR PLASMA 67 U/L 40 - 150 03/09 Specimen Type: PLASMA Comment: No hemolysis noted. Ordering Provider: TONI MCGHEE RID Report Released Date/Time: Feb 28, 2024 02:54 PM Reporting Lab: [address] [phone] Performing Lab: [address] [phone] [place] [address] COMPREHENSI VE METABOLIC PANEL ASPARTATE AMINOTRANSFE RASE [ENZYMATIC ACTIVITY/VOL UME] IN SERUM OR PLASMA 23 U/L 5 - 34 03/09 Specimen Type: PLASMA Comment: No hemolysis noted. Ordering Provider: TONI MCGHEE RID Report Released Date/Time: Feb 28, 2024 02:54 PM Reporting Lab: [address] [address] Performing Lab: [address] [phone] [facility] COMPREHENSI VE METABOLIC PANEL ALANINE AMINOTRANSFE RASE [ENZYMATIC ACTIVITY/VOL UME] IN SERUM OR PLASMA 11 U/L 8 - 40 03/09 Specimen Type: PLASMA Comment: No hemolysis noted. Ordering Provider: TONI MCGHEE RID Report Released Date/Time: Feb 28, 2024 02:54 PM Reporting Lab: [address] [phone] Performing Lab: [address] [phone] [facility] COMPREHENSI VE METABOLIC PANEL GLOMERULAR FILTRATION RATE/1.73 SQ M.PREDICTED [VOLUME RATE/AREA] IN SERUM, PLASMA OR BLOOD BY CREATININE-B ASED FORMULA (CKD-EPI 2020) 102.5 60 03/09 Specimen Type: PLASMA Comment: No hemolysis noted. Ordering Provider: TONI MCGHEE RID Report Released Date/Time: Feb 28, 2024 02:54 PM Reporting Lab: [facility] [address] [place] [phone] Performing Lab: [facility] [address] [facility] [phone] [facility] HGA1C HEMOGLOBIN A1C/HEMOGLOB IN.TOTAL IN BLOOD 5.3 4.0 - 6.0 03/09 Specimen Type: BLOOD No comment entered. Ordering Provider: TONI MCGHEE RID Report Released Date/Time: Feb 28, 2024 02:54 PM Reporting Lab: [facility] [address] [place] [phone] Performing Lab: [facility] [address] [facility] [phone] [facility] LIPID PANEL (STL) CHOLESTEROL [MASS/VOLUME ] IN SERUM OR PLASMA 220 mg/dL 0 - 200 03/09 H Specimen Type: PLASMA Comment: No hemolysis noted. Ordering Provider: TONI MCGHEE RID Report Released Date/Time: Feb 28, 2024 02:54 PM Reporting Lab: [facility] [address] [place] [phone] Performing Lab: [facility] [address] [place] [phone] [facility] LIPID PANEL (STL) TRIGLYCERIDE [MASS/VOLUME ] IN SERUM OR PLASMA 137 mg/dL 0 - 150 03/09 Specimen Type: PLASMA Comment: No hemolysis noted. Ordering Provider: TONI MCGHEE RID Report Released Date/Time: Feb 28, 2024 02:54 PM Reporting Lab: [facility] [address] [place] [phone] Performing Lab: [facility] [address] [place] [phone] [facility] LIPID PANEL (STL) CHOLESTEROL IN LDL [MASS/VOLUME ] IN SERUM OR PLASMA BY CALCULATION 156 mg/dL 03/09 Specimen Type: PLASMA Comment: No hemolysis noted. Ordering Provider: TONI MCGHEE RID Report Released Date/Time: Feb 28, 2024 02:54 PM Reporting Lab: [facility] [address] [place] [phone] Performing Lab: [facility] [address] [facility] [phone] [facility] LIPID PANEL (STL) CHOLESTEROL IN HDL [MASS/VOLUME ] IN SERUM OR PLASMA 37 mg/dL 40 03/09 L Specimen Type: PLASMA Comment: No hemolysis noted. Ordering Provider: TONI MCGHEE RID Report Released Date/Time: Feb 28, 2024 02:54 PM Reporting Lab: [facility] [address] [place] [phone] Performing Lab: [facility] [address] [place] [phone] [facility] TSH W/ REFLEX FT4 (STL) THYROTROPIN [UNITS/VOLUM E] IN SERUM OR PLASMA 0.252 u[IU]/ mL 0.47 - 5 03/09 L Specimen Type: PLASMA No comment entered. Ordering Provider: TONI MCGHEE RID Report Released Date/Time: Feb 28, 2024 02:54 PM Reporting Lab: [facility] [address] [facility] [phone] Performing Lab: [address] [address] [facility] TSH W/ REFLEX FT4 (STL) FREE T4(REFLEX) 1.07 ng/mL 0.7 - 1.48 03/09 Specimen Type: PLASMA No comment entered. Ordering Provider: TONI MCGHEE RID Report Released Date/Time: Feb 28, 2024 02:54 PM Reporting Lab: [facility] [address] [place] [phone] Performing Lab: [address] [address] [facility] VITAMIN D, 25-HYDROXY 25-HYDROXYVI TAMIN D3 [MASS/VOLUME ] IN SERUM OR PLASMA 42.2 ng/mL 30 - 96 03/09 Specimen Type: SERUM No comment entered. Ordering Provider: TONI MCGHEE RID Report Released Date/Time: Feb 28, 2024 02:54 PM Reporting Lab: [facility] [address] [facility] [phone] Performing Lab: [facility] [address] [place] [phone] [facility] Vital Signs Combined list of inpatient and outpatient Vital Signs from Department of [facility] and [facility], ranging from 12 months to all on record, depending upon the facility. Vital Sign Value Date Comments Source SYSTOLIC BLOOD PRESSURE 119 02/28/2024 14:03:01 [facility] DIASTOLIC BLOOD PRESSURE 79 02/28/2024 14:03:01 [facility] PULSE OXIMETRY 98 02/28/2024 14:03:01 [facility] WE[facility] 153.6 02/28/2024 14:03:01 [facility] BMI 25 kg/m2 02/28/2024 14:03:01 [facility] PAIN 5 02/28/2024 14:03:01 [facility] TEMPERATURE 98.3 02/28/2024 14:03:01 [facility] PULSE 79 02/28/2024 14:03:01 [facility] RESPIRATION 20 02/28/2024 14:03:01 [facility] Encounters Combined list of: 1) Encounters from [facility] Veterans Affairs facilities going backup to the last 18 months, not all [place] inpatient encounters are included; 2) Encounters from the Department of [facility] facilities going backup to 280 months. Location Location Details Encounter Type Encounter Number Reason For Visit Attending Provider ADM Date DC Date Status Disposition Source [facility] Outpatient Encounter [id number] 12/09 [facility] Outpatient Encounter [id number] 12/[address] [facility] Outpatient Encounter [id number] Diagnos is: ICD-10- CM M54.89 Other dorsalg ia TONI MCGHEE RID 12/24 [facility] Outpatient Encounter [id number] Mariusz CHENG 01/05 [facility] OFF[facility] O/P EST SF 10-19 MIN [id number] Diagnos is: ICD-10- CM M51.36 Other interve rtebral disc degener ation, lumbar region KARY HARRIS 01/[address] [facility] IMMUNIZATI ON ADMIN [id number] Diagnos is: ICD-10- CM Z23 Encount er for immuniz ation CATHY ABEL Jane 01/25 [facility] OFFICE O/P EST MOD 30-39 MIN [id number] Diagnos is: ICD-10- CM F33.1 Major depress jace disorde r, recurre nt, moderat e POPEYEADEDARREN WAN 01/25 [facility] Outpatient Encounter [id number] 02/02 [facility] Outpatient Encounter [id number] Diagnos is: ICD-10- CM M54.32 Sciatic a, left side ALISHA QUEEN R 02/02 [facility] Outpatient Encounter [id number] 02/02 [facility] Outpatient Encounter [id number] 02/16 [facility] Outpatient Encounter [id number] Rina ZHANG D 02/16 [facility] Outpatient Encounter [id number] 03/26 [facility] OFFICE O/P NEW MOD 45-59 MIN [id number] Diagnos is: ICD-10- CM M47.26 Other spondyl osis with radicul opathy, lumbar region AIDEN BARRIOS 04/05 [facility] Outpatient Encounter [id number] 04/12 [facility] Outpatient Encounter [id number] 05/11 [facility] Outpatient Encounter [id number] 05/17 [facility] Outpatient Encounter [id number] 05/19 [facility] Outpatient Encounter [id number] BEHZAD DE LA ROSA 10/11 [facility] Outpatient Encounter [id number] CANDICE DUMONT 11/10 [facility] Outpatient Encounter [id number] BEHZAD DE LA ROSA 02/22 [facility] OFFICE O/P EST LOW 20 MIN [id number] Diagnos is: ICD-10- CM F32.A Depress ion, unspeci fiTONI Vann RID D 02/27 [facility] OFFICE O/P EST MOD 30 MIN [id number] Diagnos is: ICD-10- CM F43.12 Post-tr aumatic stress disorde r, chronic DARREN RIOS 02/27 [facility] Outpatient Encounter [id number] 04/06 [facility] Outpatient Encounter [id number] REMY TEJADA NNIFER A 04/06 [facility] Outpatient Encounter [id number] REMY ELLIOTT 04/20 [facility] Outpatient Encounter [id number] REMY ELLIOTT 04/20 [facility] [id number] 04/23 [facility] N [facility] Outpatient Encounter [id number] DARREN RIOS 04/24 [facility] Outpatient Encounter [id number] 04/27 [facility] Social History Combined list of available smoking, tobacco, and other social history from Department of Defense and Veterans Affairs facilities. Social History Type Response Date Comment [facility] e Tobacco smoking status NEIS VA-TOBACCO USE WI 30 MIN OF WAKEUP 10/12/2023 [facility] History of tobacco use VA-TOBACCO USER E VERY DAY 10/12/2023 [facility] History of tobacco use VA-TOBACCO USER E VERY DAY 10/29/2021 [facility] History of tobacco use VA-TOBACCO USER E VERY DAY 11/27/2020 [facility] This section is an empty social history section. [facility] Plan of Care List of future care activities from Department of Veterans Affairs facilities. Additional future care activities may be listed in the Assessment and Plan section. Date/Time Care Activity Care Activity Detail Facili ty 07/25/2024 AMBULATORY - MEDICINE AMBULATORY - MEDICI NE [facility] 08/07/2024 AMBULATORY - PSYCHIATRY AMBULATORY - PSYC HIATRY [facility]
== END 2024-05-28 10:36 | disposition home or self-care (01) ==
LOC: ANHIMG 10:37
PROVIDERS: PCP Family Medicine Adolescent Medicine; Visit Provider Family Medicine Adolescent Medicine
DX: Z85.3 Personal history of malignant neoplasm of breast (principal)
CPT/HCPCS: 76642; 77062; 77066; G0279

== ENCOUNTER 2024-06-09 09:54 | Emergency (ER) | payer OTHER, SELFPAY ==
[2024-06-09 10:05] VITALS: BP 128/80; PULSE 95; RESP 14; TEMP 36.9; O2SAT 97
--- NOTE | 2024-06-09 10:05 | ED.URI ---
HPI - URI/Sore Throat General Chief Complaint: Upper Respiratory Infection Stated Complaint: Bodyaches/Headache Time Seen by Provider: 06/09/24 10:05 Source: patient, RN notes reviewed and old records reviewed Mode of arrival: ambulatory Limitations: no limitations History of Present Illness HPI Narrative: Patient presents with complaints of flu like symptoms for 3-4 days. She has been using Mucinex, DayQuil, NyQuil with moderate results. She is becoming concerned because she does not feel much better. Says worse symptom now is body aches. She has not taken any medications this morning Related Data Allergies Allergy/AdvReac Type Severity Reaction Status Date / Time Sulfa (Sulfonamide Allergy Unknown swelling Verified 06/09/24 09:57 Antibiotics) hydrochlorothiazide AdvReac Mild Stomach Verified 06/09/24 09:57 cramps Review of Systems Review of Systems: All systems reviewed & are unremarkable except as noted in HPI and below Constitutional: Constitutional: Reports no additional constitutional complaints, Reports body ache(s), Reports chills, Reports fever(s), Reports headache(s) and Reports lethargy ENT: Reports system reviewed and no additional complaints, except as documented, Reports nasal congestion and Reports nasal discharge Cardiovascular: Cardiovascular: Reports no additional cardiovascular complaints Respiratory: Respiratory: Reports no additional respiratory complaints and Reports cough Gastrointestinal: Gastrointestinal: Reports no additional gastrointestinal complaints PMF Past Medical History Medical History Breast CA HTN (hypertension) History of kidney stones History of blood transfusion Surgical History Surgical History History of bilateral breast reduction surgery H/O dilation and curettage H/O breast augmentation fat transfer H/O: hysterectomy partial, 2012 H/O lumpectomy Family History Family History Father Diabetes mellitus Hypertension Mother Diabetes mellitus Hypertension Cerebrovascular accident Sibling Multiple sclerosis Other Diabetes mellitus Cerebrovascular accident Hypertension Other Acute myocardial infarction Other Family history of throat cancer Social History Social History Smoking status: Current every day smoker Tobacco type: cigarettes Second hand tobacco smoke exposure: Yes Alcohol intake: current Drinks per week: 14 Substance use: never Substance use type: does not use Other substance usage details: Denies IV drug use Do You Feel Safe in your Home?: Yes Lack of Transportation: No Lack of Food: Never True Current Housing: I Have Housing Concerned About Future Housing: No Difficulty Paying Gas/Electric Bills: No Difficulty Paying for Meds: No Currently Unemployed: No Education: Master's Degree or Higher Difficulty w/ Childcare or Family Care: No Living arrangements: with family 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 There is no relevant family history pertinent to the patient complaint. Exam Const: General: cooperative, no acute distress, alert and awake Orientation/consciousness: oriented to person, oriented to place and oriented to time HENMT: Head: normal to inspection Mouth: Yes moist mucous membranes Throat: posterior oropharynx normal Resp: Effort & Inspection: normal respiratory effort and able to speak in complete sentences Auscultation: clear to auscultation bilaterally, no crackles, no rales, no rhonchi and no wheezes Cardio: Palpation: normal PMI Rate: regular rate Rhythm: regular rhythm Heart sounds: S1 normal heart sound present and S2 normal heart sound present Neuro: General: oriented to person, oriented to place and oriented to time Cranial nerves: Yes CN's II-XII intact bilaterally Psych: Appearance: grossly normal Thought process: Normal thought process present Insight: Good insight present (Psych) Judgement: Good judgement present (Psych) Course Course Level of Care: Express Care Visit Vital Signs Vital signs: Reviewed MDM - URI/Sore Throat MDM Narrative Medical decision making narrative: Positive influenza a. Supportive care measures discussed, work note provided. Patient nontoxic appearing, stable for discharge home. Discharge instructions reviewed with patient, as well as provided in writing per nursing staff. The instructions also include specific and strict return/GO TO THE ER as well as f/u information. All questions have been answered, and the patient deny any further questions with discharge and discharge plan. Some parts of this dictation were generated by voice recognition software and may contain typographical and/or grammatical inaccuracies. Differential Diagnosis Differential diagnosis: Likely upper respiratory infection, otitis media, viral infection, influenza and pharyngitis Medical Records Attestation: I reviewed the patient's medical records. Lab Data Attestation: I reviewed the patient's lab results. Discharge Plan Discharge Clinical Impression: Influenza Patient Disposition: Home, Self-Care Condition: Stable Instructions: Antibiotic Form, Influenza (ED) Additional Instructions: Take medication as prescribed. Follow with primary care provider. Emergency department for new or worse symptoms Patient Language: Bangladeshi Prescriptions: New naproxen 500 mg tablet 500 mg PO BID PRN (Reason: pain) Qty: 20 0RF benzonatate 200 mg capsule 200 mg PO TID PRN (Reason: cough) Qty: 60 0RF No Action bupropion HCl 150 mg tablet sustained-release 12 hr 150 mg PO BID Qty: 180 1RF Rx Instructions: nightly x 3 nights and then twice daily indomethacin 50 mg capsule 50 mg PO TID Qty: 60 1RF Rx Instructions: administer with food or milk acetaminophen 500 mg capsule 1,000 mg PO Q6H PRN (Reason: pain) Qty: 30 0RF lidocaine 4 % adhesive patch,medicated 1 patch topical DAILY PRN (Reason: pain) Qty: 5 0RF amlodipine 5 mg tablet 5 mg PO DAILY Qty: 30 5RF diclofenac potassium 50 mg tablet See Rx Instructions .ROUTE .COMPLEX Qty: 30 2RF Dose Instruction: TAKE 1 TABLET BY MOUTH TWICE A DAY Rx Instructions: TAKE 1 TABLET BY MOUTH TWICE A DAY hydroquinone 4 % cream 1 applic topical BID Qty: 28.4 2RF metoprolol succinate 100 mg tablet extended release 24 hr See Rx Instructions .ROUTE .COMPLEX Qty: 90 3RF Dose Instruction: TAKE 1 TABLET DAILY Rx Instructions: TAKE 1 TABLET DAILY Follow-up/Referrals: Edgardo Sheridan MD [Primary Care Provider] - 2 Weeks Stand Alone Forms: Work/School Release IP Time of Disposition: 10:45
[2024-06-09 10:22] LABS: EDCOVIDSCREEN Negative (Negative); EDINFLUASCREEN Positive (Negative); EDINFLUBSCREEN Negative (Negative)
== END 2024-06-09 10:50 | disposition home or self-care (01) ==
PROVIDERS: Emergency Provider Nurse Practitioner Family; PCP Family Medicine Adolescent Medicine
DX: J10.1 Influenza due to other identified influenza virus with other respiratory manifestations (principal); Z20.822 Contact with and (suspected) exposure to COVID-19; F17.210 Nicotine dependence, cigarettes, uncomplicated; I10 Essential (primary) hypertension; Z85.3 Personal history of malignant neoplasm of breast; Z90.711 Acquired absence of uterus with remaining cervical stump
CPT/HCPCS: 87426; 87804; 99213; G0463

== ENCOUNTER 2024-11-21 11:25 | Outpatient (CLI) | payer OTHER, BC, SELFPAY ==
--- NOTE | ~2024-11-21 | CT_ITS ---
EXAMINATION: CT abdomen pelvis wo con DATE: 11/21/2024 11:41 INDICATION: Abdominal pain TECHNIQUE: Computed tomography (CT) of the abdomen and pelvis was performed without intravenous contr ast. Automated exposure control and iterative reconstruction technique were employed. The dose-length product was 247.19 mGy-cm. COMPARISON: None FINDINGS: Minimal discoid atelectasis at the bilateral lung bases. Heart size is normal. No pericardial or pleu ral effusion. Postoperative changes at the left breast. 2.5 cm hepatic cyst. Couple calcified gallsto umm at the dependent fundus of the otherwise normal gallbladder with no wall thickening or pericholec ystic inflammatory stranding to suggest acute cholecystitis. Spleen, pancreas, bilateral adrenal glan ds and kidneys are normal. There is moderate colonic diverticulosis with a descending and sigmoid col on predominance without adjacent inflammatory change to suggest diverticulitis. Small bowel and appe ndix are normal. The uterus is not identified and has likely been surgically resected. Bilateral ovar ies are unremarkable. Bladder is normal. No free intraperitoneal gas or fluid. No pathologically enla rged abdominal or pelvic lymphadenopathy. Mild thoracolumbar levocurvature with moderate spondylosis. 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 Mild osteoarthritis at the left hip. IMPRESSION: 1. No acute intra-abdominal/pelvic process. 2. Cholelithiasis. 3. Diverticulosis. Reviewed, dictated and finalized at location A.
--- OUTSIDE RECORDS SUMMARY | 2024-11-21 11:32 | XMS_ITS | Encounter Summary ---
Author Name [facility] [facility] [place] Address [address] [place] [address] Care Team Providers Care Criminal Court Judge Name Role Phone SYDNEY MCGHEE Primary Care Provider Unavailabl e Insurance Providers: All historical and current Section Date Range: From patient's date of to the date document was created. This section includes the names of all active insurance providers for the patient. Insurance Provider Type of Coverage Plan Name Start of Policy Coverage End of Policy Coverage Group Number Member ID Insurance Provider's Telephone Number Policy Tamayo's Name Patient's Relationship to Policy Tamayo [employer] PRESCRIPT ION RX PLAN Sep 10, 2003 [id number] [phone] LU PEÑA PATIENT [facility] Sep 10, 2003 [id number] [phone] LU PEÑA PATIENT [facility] POINT OF SERVICE [facility] Sep 10, 2003 [id number] LU PEÑA PATIENT Selected Encounter This section includes the information on record at [place] for the Encounter. Date/Time Encounter Type Encounter Description Reason Pro vider Source Nov 20, 2024 12:00 AM Outpatient Encounter EVENT (HISTORICAL) IHE Encounter Template Text not used by [facility] Plan of Treatment: Future Appointments (+ 6 months) and Future Tests (+/- 45 days) The Plan of Treatment section includes future care activities for the patient from all [place] treatmentfacilities. This section includes future appointments and future orders which are active, pending or scheduled. Future Appointments This section includes appointments that were scheduled to occur 6 months from the date of the Encounter, up to a maximum of 20 appointments. The data comes from all [facility] [address] Appointment Date/Time Appointment Type Appointme nt Facility Name Dec 28, 2024 11:30 AM AMBULATORY - MEDICINE [facility] Active, Pending, and Scheduled Orders This section includes a listing of several types of active, pending, and scheduled orders, including clinic medications orders, diagnostic test orders, procedure orders and consult orders; where the start date of the order is 45 days before the date of the Encounter or 45 days after the date of theEncounter. The data comes from all [facility] [address]. Test Date/Time Test Type Test Details Facility Name Oct 15, 2024 12:00 AM Laboratory - Chemistry Order CPK GREEN LI/HEP BLD/PLAS PLASMA SP [facility] Nov 20, 2024 12:00 AM Laboratory - Chemistry Order RHEUMATOID FACTOR (STL) GOLD/RED SST SERUM SP [facility] Nov 20, 2024 12:00 AM Laboratory - Chemistry Order PGX PANEL MORGAN BLOOD SP ONCE [facility] Nov 20, 2024 12:00 AM Laboratory - Chemistry Order ANTI-NUCLEAR ANTIBODY (STL-PB) GOLD/RED SST SERUM SP [facility] Nov 20, 2024 12:00 AM Laboratory - Chemistry Order COMPREHENSIVE METABOLIC PANEL GREEN LI/HEP BLD/PLAS PLASMA SP [facility] Nov 20, 2024 12:00 AM Laboratory - Chemistry Order LIPID PANEL (STL) GREEN LI/HEP BLD/PLAS PLASMA SP ONCE [facility] Nov 20, 2024 12:00 AM Laboratory - Chemistry Order CBC BLOOD SP [facility] Nov 20, 2024 12:00 AM Laboratory - Chemistry Order ESR ISED(STL) BLOOD LAVENDER SP [facility] Nov 20, 2024 12:00 AM Laboratory - Chemistry Order VITAMIN D, 25-HYDROXY GOLD/RED SST SERUM SP [facility] Nov 20, 2024 12:00 AM Laboratory - Chemistry Order B12 GOLD/RED SST SERUM SP [facility] Nov 20, 2024 12:00 AM Laboratory - Chemistry Order URINALYSIS W/ CX REFLEX (STL-PB) URN - CLEAN CATCH URINE SP [facility] Nov 20, 2024 12:00 AM Imaging - General Radiology Order HIPS W/PELVIS BILAT 4 OR MORE VIEWS AP Pelvis, Frog [facility] Nov 20, 2024 03:33 PM Pharmacy - Clinic Medication Order [facility] Social History: Smoking Status (Most current) and Tobacco Use (All prior to encounter date) This section includes the most current, and the historical, smoking and tobacco- related health factors from the [place] facility where the Encounter took place. Current Smoking Status This section includes the most current smoking, or tobacco-related health factor, from the [place] facility where the Encounter took place. Date/Time Current Smoking Status Comment Facil ity Nov 14, 2024 09:45 AM VA-TOBACCO USE SARTHAK RY DAY CIGARETTES [facility] Tobacco Use History This section includes a history of the smoking, or tobacco-related health factors, that were collected on or before the date of the Encounter. The data comes from the [place] facility where the Encounter took place. 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
--- OUTSIDE RECORDS SUMMARY | 2024-11-21 11:32 | XMS_ITS | Encounter Summary ---
Author Name [facility] Address [address] [place] [address] Care Team Providers Care Rn Flight Name Role Phone SYDNEY MCGHEE Primary Care [...] ION RX PLAN Sep 10, 2003 [id number] [phone] LU PEÑA PATIENT [facility] [place] Sep 10, 2003 [id number] [phone] LU PEÑA PATIENT [facility] POINT OF SERVICE [place] Sep 10, 2003 [id number] [phone] LU PEÑA PATIENT Selected Encounter This section includes the information on record at [place] for the Encounter. Date/Time Encounter Type Encounter Description Reason Pro vider Source Nov 20, 2024 02:00 PM Outpatient Encounter EVENT (HISTORICAL) [facility] Encounter Template Text not used by [facility] Plan of Treatment: Future Appointments (+ 6 months) and Future Tests (+/- 45 days) The Plan of Treatment section includes future care activities for the patient from all [place] treatmentfacilities. This section includes future appointments and future orders which are active, pending or scheduled. Future Appointments This section includes appointments that were scheduled to occur 6 months from the date of the Encounter, up to a maximum of 20 appointments. The data comes from all [facility]. Appointment Date/Time Appointment Type Appointme nt Facility Name Dec 28, 2024 11:30 AM AMBULATORY - MEDICINE [facility] Active, Pending, and Scheduled Orders This section includes a listing of several types of active, pending, and scheduled orders, including clinic medications orders, diagnostic test orders, procedure orders and consult orders; where the start date of the order is 45 days before the date of the Encounter or 45 days after the date of theEncounter. The data comes from all [facility]. Test Date/Time Test Type Test Details Facility Name Oct 15, 2024 12:00 AM Laboratory - Chemistry Order CPK GREEN LI/HEP BLD/PLAS PLASMA SP [facility] Nov 20, 2024 12:00 AM Laboratory - Chemistry Order PGX PANEL MORGAN BLOOD SP ONCE [facility] Nov 20, 2024 12:00 AM Laboratory - Chemistry Order RHEUMATOID FACTOR (STL) GOLD/RED SST SERUM SP [facility] Nov 20, 2024 12:00 AM Laboratory - Chemistry Order ANTI-NUCLEAR ANTIBODY (STL-PB) GOLD/RED SST SERUM SP [facility] Nov 20, 2024 12:00 AM Laboratory - Chemistry Order COMPREHENSIVE METABOLIC PANEL GREEN LI/HEP BLD/PLAS PLASMA SP [facility] Nov 20, 2024 12:00 AM Laboratory - Chemistry Order LIPID PANEL (STL) GREEN LI/HEP BLD/PLAS PLASMA SP ONCE [facility] Nov 20, 2024 12:00 AM Laboratory - Chemistry Order CBC BLOOD SP [facility] Nov 20, 2024 12:00 AM Laboratory - Chemistry Order VITAMIN D, 25-HYDROXY GOLD/RED SST SERUM SP [facility] Nov 20, 2024 12:00 AM Laboratory - Chemistry Order ESR ISED(STL) BLOOD LAVENDER SP [facility] Nov 20, 2024 12:00 AM Laboratory - Chemistry Order B12 GOLD/RED SST SERUM SP [facility] Nov 20, 2024 12:00 AM Laboratory - Chemistry Order URINALYSIS W/ CX REFLEX (STL-PB) URN - CLEAN CATCH URINE SP [facility] Nov 20, 2024 12:00 AM Imaging - General Radiology Order HIPS W/PELVIS BILAT 4 OR MORE VIEWS AP Pelvis, Frog [facility] Nov 20, 2024 03:33 PM Pharmacy - Clinic Medication Order [facility] Social History: Smoking Status (Most current) and Tobacco Use (All prior to encounter date) This section includes the most current, and the historical, smoking and tobacco- related health factors from the [place] facility where the Encounter took place. Current Smoking Status This section includes the most current smoking, or tobacco-related health factor, from the [place] facility where the Encounter took place. Date/Time Current Smoking Status Comment Facil ity Nov 14, 2024 09:45 AM [facility]-TOBACCO USE SARTHAK RY DAY CIGARETTES [facility] Tobacco Use History This section includes a history of the smoking, or tobacco-related health factors, that were collected on or before the date of the Encounter. The data comes from the [place] facility where the Encounter took place. 

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
--- OUTSIDE RECORDS SUMMARY | 2024-11-21 11:32 | XMS_ITS | Continuity of Care Document ---
Author Name [facility] Organization [facility] Care Team Providers Care Homemaking Rehabilitation Consultant Name Role Phone [facility] Unavailable Unavailable Problems Combined list of problems from [facility] and [facility] facilities. It does not include entries that were removed or entered in error. Problem Status Onset Date Problem Type Date of Resolution Comments Source Benign essential hypertension Active Condition [facility] Chronic depression Active Condition [facility] Sciatica Active Condition [facility] Diagnosis: ICD-10-CM M25.559 Pain in unspecified hip Active Diagnosis [facility] Diagnosis: ICD-10-CM F43.12 Post-traumatic stress disorder, chronic Active Diagnosis [facility] Diagnosis: ICD-10-CM M54.32 Sciatica, left side Active Diagnosis [facility] Diagnosis: ICD-10-CM F32.A Depression, unspecified Active Diagnosis [facility] Medications Combined list of outpatient medications from [facility] facilities.Medications provided include 1) outpatient medications from the last 15 months, and 2) patient-reported medications. Medication Details Route Status Patient Instructions Prescription Expires Prescription Number Last Dispense Date Ordering Provider Order Date Order Qty Source AMLODIPINE BESYLATE 5MG TAB TAKE ONE TABLET BY MOUTH ONCE A DAY ORAL ACTIVE 07/13/2025 [id number] TAZIN AWA D 2024 90 [facility] AMLODIPINE BESYLATE 5MG TAB TAKE ONE TABLET BY MOUTH ONCE A DAY ORAL DISCONT INUED 07/15/2024 [id number] TAZIN AWA Robertson 2023 90 [facility] AMLODIPINE BESYLATE 5MG TAB TAKE ONE TABLET BY MOUTH ONCE A DAY ORAL ACTIVE TAZIN AWA D 2021 [facility] AMOXICILLIN TRIHYDRATE 875MG/CLAVU LANATE K 125MG TAB TAKE 1 TABLET BY MOUTH TWICE A DAY TAKE WITH FOOD. TAKE UNTIL GONE UNLESS OTHERWIS E DIRECTED . ORAL 08/24/2024 [id number] TAZIN GRID D 2024 20 [facility] ATORVASTATI N CA 40MG TAB TAKE ONE-HALF TABLET BY MOUTH EVERY EVENING FOR HIGH CHOLESTE ROL ORAL DISCONT INUED BY PROVIDE R 08/08/2025 [id number] TAZIN GRID D 2024 45 [facility] BUPROPION HCL 150MG 12HR TAB,SA TAKE TWO TABLETS BY MOUTH ONCE A DAY FOR DEPRESSI ON AND PTSD SWALLOW WHOLE - DO NOT CRUSH OR CHEW. ORAL DISCONT INUED 08/08/2025 [id number] GBADE[facility] [facility] [facility] BUPROPION HCL 150MG 12HR TAB,SA TAKE TWO TABLETS BY MOUTH ONCE A DAY FOR DEPRESSI ON SWALLOW WHOLE - DO NOT CRUSH OR CHEW. ORAL DISCONT INUED BY PROVIDE R 08/27/2024 [id number] GBADEBO-G TAHMINA HIGHTOWER VELIA 2024 180 [facility] BUPROPION HCL 150MG 12HR TAB,SA TAKE TWO TABLETS BY MOUTH ONCE A DAY FOR DEPRESSI ON SWALLOW WHOLE - DO NOT CRUSH OR CHEW. ORAL DISCONT INUED 05/28/2024 [id number] GBADEBO-G TAHMINA HIGHTOWER VELIA 2023 180 [facility] BUPROPION HCL 75MG TAB TAKE ONE TABLET BY MOUTH EVERY 8 HOURS FOR ANXIETY AND PTSD ORAL ACTIVE 11/21/2025 [id number] GBADEBO-G TAHMINA HIGHTOWER VELIA 2024 90 [facility] LIDOCAINE 5% PATCH APPLY 1 PATCH TO SKIN SITE ONCE A DAY FOR LOCAL ANESTHES IA APPLY PATCH AND PRESS FIRMLY FOR 10-15 SECONDS. KEEP ON FOR 12 HOURS THEN REMOVE PATCH FOR 12 HOURS. TRANSD ERMAL ACTIVE 12/08/2024 [id number] TAZIN GRID D 2023 30 [facility] METOPROLOL SUCCINATE 200MG TAB,SA TAKE ONE-HALF TABLET BY MOUTH ONCE A DAY ORAL ACTIVE TAZIN GRID D 2021 [facility] NALTREXONE (EQV-REVIA) 50MG TAB TAKE ONE-HALF TABLET BY MOUTH ONCE A DAY FOR ASSISTAN CE WITH DEPENDEN CY ORAL PROVIDE R HOLD 04/21/2025 [id number] GBADEBO-G OYEATAHMINA VELIA 2024 15 [facility] NALTREXONE (EQV-REVIA) 50MG TAB TAKE ONE-HALF TABLET BY MOUTH ONCE A DAY FOR 4 DAYS, THEN TAKE ONE TABLET ONCE A DAY FOR ASSISTAN CE WITH DEPENDEN CY ORAL DISCONT INUED (EDIT) 02/28/2025 [id number] GBADEBO-G OYETAHMINA Reed VELIA 2023 28 [facility] ZOLPIDEM TARTRATE 5MG TAB TAKE ONE-HALF TABLET BY MOUTH AT BEDTIME NEEDED FOR INSOMNIA (TAKE IMMEDIAT FRAN BEFORE BEDTIME DUE TO RAPID ONSET OF ACTION) ORAL DISCONT INUED BY PROVIDE R 11/29/2024 [id number] GBADEBO-G OYEATAHMINA VELIA 2024 15 [facility] Allergies, Adverse Reactions, Alerts Combined list of [...] Site Reaction Lot Number CVX Code Drug Software Asset Management Analyst Status Comments Source PNEUMOCOCCAL CONJUGATE PCV20, POLYSACCHARID E CUR673 CONJUGATE, ADJUVANT, PF 2024 ZULEIMA DE LA ROSA S RIGHT DELTO ID [id number] 216 complet ed ADMINISTE MARIE AT MD, [facility] COVID-19 (PFIZER), MRNA, LNP-S, PF, DIXON-SUCROSE, 30 MCG/0.3 ML (AGES 12+ YEARS) 2023 READZULEIMA SUMNER S RIGHT DELTO ID [id number] 309 complet ed ADMINISTE RED AT [facility] INFLUENZA, SPLIT VIRUS, TRIVALENT, PF 2023 READZULEIMA SUMNER S LEFT DELTO ID [id number] 140 complet ed ADMINISTE RED AT [facility] INFLUENZA, INJECTABLE, QUADRIVALENT, PRESERVATIVE FREE 2022 ROBBIE ABEL IN J RIGHT DELTO ID [id number] 150 complet ed ADMINISTE RED AT [facility] COVID-19 (MODERNA), MRNA, LNP-S, BIVALENT BOOSTER, PF, 50 MCG/0.5 ML OR 25MCG/0.25 ML DOSE 1 2021 229 complet ed MOD; [id number]; 3 [facility] INFLUENZA, INJECTABLE, QUADRIVALENT 2021 158 complet ed [facility] COVID-19 (MODERNA), MRNA, LNP-S, PF, 100 MCG/0.5ML DOSE OR 50 MCG/0.25ML DOSE 3 2021 207 complet ed MOD; [id number]; 2 [facility] ZOSTER RECOMBINANT 2 2020 187 complet ed [facility] COVID-19 (MODERNA), MRNA, LNP-S, PF, 100 MCG OR 50 MCG DOSE 3 2020 207 complet ed [facility] INFLUENZA, UNSPECIFIED FORMULATION 2020 88 complet ed [facility] TDAP 2020 115 complet ed [facility] ZOSTER RECOMBINANT 1 2020 187 complet ed [facility] COVID-19 (MODERNA), MRNA, LNP-S, PF, 100 MCG/0.5 ML DOSE 2 2020 207 complet ed [facility] COVID-19 (MODERNA), MRNA, LNP-S, PF, 100 MCG/0.5 ML DOSE 1 2020 207 complet ed [facility] INFLUENZA, SEASONAL, INJECTABLE 1 2013 141 complet ed HISTORICA L INFORMATI ON - FROM OTHER REGISTRY, [facility] Results Combined list of recent chemistry, hematology and other laboratory results from [facility] and [facility], ranging from 15 months to all on record, depending upon the facility. Order Name Results Value Reference Range Date Interpretation Specimen Comments Source I-STAT, CREAT (STL-OH) CREATININE [MASS/VOLUM E] IN BLOOD 0.7 mg/dL 0.7 - 1.3 10/05 Specimen Type: BLOOD Comment: Test Performed by: [id number] Meter #: [id number] Ordering Provider: TONI MCGHEE RID Report Released Date/Time: Oct 05, 2024 12:47 PM Reporting Lab: [address] [address] Performing Lab: [address] [phone] CBC LEUKOCYTES [#/VOLUME] IN BLOOD BY AUTOMATED COUNT 8.8 10*3/uL 3.6 - 11.2 07/25 Specimen Type: BLOOD No comment entered. Ordering Provider: TONI MCGHEE RID Report Released Date/Time: Jul 25, 2024 11:07 AM Reporting Lab: [address] [address] Performing Lab: [address] [phone] [place] [address] CBC ERYTHROCYTE S [#/VOLUME] IN BLOOD BY AUTOMATED COUNT 4.97 10*6/uL 3.60 - 5.00 07/25 Specimen Type: BLOOD No comment entered. Ordering Provider: TONI MCGHEE RID Report Released Date/Time: Jul 25, 2024 11:07 AM Reporting Lab: [address] [address] Performing Lab: [address] [place] [address] [facility] CBC HEMOGLOBIN [MASS/VOLUM E] IN BLOOD 14.2 g/dL 11.0 - 14.9 07/25 Specimen Type: BLOOD No comment entered. Ordering Provider: TONI MCGHEE RID Report Released Date/Time: Jul 25, 2024 11:07 AM Reporting Lab: [address] [address] Performing Lab: [address] [phone] [place] [address] CBC HEMATOCRIT [VOLUME FRACTION] OF BLOOD 43.5 32.6 - 43.4 07/25 H Specimen Type: BLOOD No comment entered. Ordering Provider: TONI MCGHEE RID Report Released Date/Time: Jul 25, 2024 11:07 AM Reporting Lab: [address] [address] Performing Lab: [address] [address] [facility] CBC MCV [ENTITIC VOLUME] BY AUTOMATED COUNT 87.5 fL 80.0 - 100.0 07/25 Specimen Type: BLOOD No comment entered. Ordering Provider: TONI MCGHEE RID Report Released Date/Time: Jul 25, 2024 11:07 AM Reporting Lab: [address] [address] Performing Lab: [address] [address] [facility] CBC MCH [ENTITIC MASS] BY AUTOMATED COUNT 28.6 pg 27.0 - 34.0 07/25 Specimen Type: BLOOD No comment entered. Ordering Provider: TONI MCGHEE RID Report Released Date/Time: Jul 25, 2024 11:07 AM Reporting Lab: [address] [address] Performing Lab: [address] [address] [facility] CBC MCHC [MASS/VOLUM E] BY AUTOMATED COUNT 32.6 g/dL 33.0 - 36.0 07/25 L Specimen Type: BLOOD No comment entered. Ordering Provider: TONI MCGHEE RID Report Released Date/Time: Jul 25, 2024 11:07 AM Reporting Lab: [facility] [address] [place] [phone] Performing Lab: [address] [phone] [place] [address] CBC PLATELETS [#/VOLUME] IN BLOOD BY AUTOMATED COUNT 353 10*3/uL 150 - 400 07/25 Specimen Type: BLOOD No comment entered. Ordering Provider: TONI MCGHEE RID Report Released Date/Time: Jul 25, 2024 11:07 AM Reporting Lab: [address] [address] Performing Lab: [address] [phone] [place] [address] CBC PLATELET MEAN VOLUME [ENTITIC VOLUME] IN BLOOD BY AUTOMATED COUNT 9.6 fL 7.5 - 11.2 07/25 Specimen Type: BLOOD No comment entered. Ordering Provider: TONI MCGHEE RID Report Released Date/Time: Jul 25, 2024 11:07 AM Reporting Lab: [facility] [address] [place] [phone] Performing Lab: [address] [address] [facility] CBC ERYTHROCYTE DISTRIBUTIO N WIDTH [RATIO] BY AUTOMATED COUNT 13.1 11.8 - 15.1 07/25 Specimen Type: BLOOD No comment entered. Ordering Provider: TONI MCGHEE RID Report Released Date/Time: Jul 25, 2024 11:07 AM Reporting Lab: [facility] [address] [place] [phone] Performing Lab: [address] [address] [facility] CBC LYMPHOCYTES /100 LEUKOCYTES IN BLOOD BY AUTOMATED COUNT 36 07/25 Specimen Type: BLOOD No comment entered. Ordering Provider: TONI MCGHEE RID Report Released Date/Time: Jul 25, 2024 11:07 AM Reporting Lab: [facility] [address] [facility] [address] Performing Lab: [facility] [address] [facility] [address] [facility] CBC MONOCYTES/1 00 LEUKOCYTES IN BLOOD BY AUTOMATED COUNT 7 07/25 Specimen Type: BLOOD No comment entered. Ordering Provider: TONI MCGHEE RID Report Released Date/Time: Jul 25, 2024 11:07 AM Reporting Lab: [facility] [address] [facility] [address] Performing Lab: [facility] [address] [facility] [address] [facility] CBC NEUTROPHILS /100 LEUKOCYTES IN BLOOD BY AUTOMATED COUNT 54 07/25 Specimen Type: BLOOD No comment entered. Ordering Provider: TONI MCGHEE RID Report Released Date/Time: Jul 25, 2024 11:07 AM Reporting Lab: [facility] [address] [facility] [address] Performing Lab: [facility] [address] [facility] [address] [facility] CBC EOSINOPHILS /100 LEUKOCYTES IN BLOOD BY AUTOMATED COUNT 2 07/25 Specimen Type: BLOOD No comment entered. Ordering Provider: TONI MCGHEE RID Report Released Date/Time: Jul 25, 2024 11:07 AM Reporting Lab: [facility] [address] [facility] [address] Performing Lab: [facility] [address] [facility] [address] [facility] CBC BASOPHILS/1 00 LEUKOCYTES IN BLOOD BY AUTOMATED COUNT 1 07/25 Specimen Type: BLOOD No comment entered. Ordering Provider: TONI MCGHEE RID Report Released Date/Time: Jul 25, 2024 11:07 AM Reporting Lab: [facility] [address] [facility] [address] Performing Lab: [facility] [address] [facility] [address] [facility] CBC LYMPHOCYTES [#/VOLUME] IN BLOOD BY AUTOMATED COUNT 3.18 10*3/uL 0.77 - 4.50 07/25 Specimen Type: BLOOD No comment entered. Ordering Provider: TONI MCGHEE RID Report Released Date/Time: Jul 25, 2024 11:07 AM Reporting Lab: [facility] [address] [place] [phone] Performing Lab: [address] [address] [facility] CBC MONOCYTES [#/VOLUME] IN BLOOD BY AUTOMATED COUNT 0.57 10*3/uL 0.19 - 0.80 07/25 Specimen Type: BLOOD No comment entered. Ordering Provider: TONI MCGHEE RID Report Released Date/Time: Jul 25, 2024 11:07 AM Reporting Lab: [facility] [address] [place] [phone] Performing Lab: [address] [address] [facility] CBC NEUTROPHILS [#/VOLUME] IN BLOOD BY AUTOMATED COUNT 4.81 10*3/uL 2.10 - 8.00 07/25 Specimen Type: BLOOD No comment entered. Ordering Provider: TONI MCGHEE RID Report Released Date/Time: Jul 25, 2024 11:07 AM Reporting Lab: [facility] [address] [place] [phone] Performing Lab: [facility] [address] [place] [phone] [facility] CBC EOSINOPHILS [#/VOLUME] IN BLOOD BY AUTOMATED COUNT 0.19 10*3/uL 0.00 - 0.60 07/25 Specimen Type: BLOOD No comment entered. Ordering Provider: TONI MCGHEE RID Report Released Date/Time: Jul 25, 2024 11:07 AM Reporting Lab: [facility] [address] [facility] [address] Performing Lab: [facility] [address] [place] [phone] [facility] CBC BASOPHILS [#/VOLUME] IN BLOOD BY AUTOMATED COUNT 0.05 10*3/uL 0.00 - 0.20 07/25 Specimen Type: BLOOD No comment entered. Ordering Provider: TONI MCGHEE RID Report Released Date/Time: Jul 25, 2024 11:07 AM Reporting Lab: [facility] [address] [place] [phone] Performing Lab: [address] [phone] [place] [address] COMPREHEN SIVE METABOLIC PANEL CREATININE [MASS/VOLUM E] IN SERUM OR PLASMA 0.74 mg/dL 0.6 - 1.1 07/25 Specimen Type: PLASMA Comment: No hemolysis noted. Ordering Provider: TONI MCGHEE RID Report Released Date/Time: Jul 25, 2024 11:07 AM Reporting Lab: [facility] [address] [place] [phone] Performing Lab: [address] [address] [facility] COMPREHEN SIVE METABOLIC PANEL UREA NITROGEN [MASS/VOLUM E] IN SERUM OR PLASMA 12.0 mg/dL 9.0 - 25.0 07/25 Specimen Type: PLASMA Comment: No hemolysis noted. Ordering Provider: TONI MGCHEE RID Report Released Date/Time: Jul 25, 2024 11:07 AM Reporting Lab: [facility] [address] [facility] [address] Performing Lab: [facility] [address] [place] [phone] [facility] COMPREHEN SIVE METABOLIC PANEL GLUCOSE [MASS/VOLUM E] IN SERUM OR PLASMA 91 mg/dL 72 - 99 07/25 Specimen Type: PLASMA Comment: No hemolysis noted. Ordering Provider: TONI MCGHEE RID Report Released Date/Time: Jul 25, 2024 11:07 AM Reporting Lab: [facility] [address] [facility] [address] Performing Lab: [facility] [address] [facility] [address] [facility] COMPREHEN SIVE METABOLIC PANEL SODIUM [MOLES/VOLU ME] IN SERUM OR PLASMA 138 meq/L 136 - 145 07/25 Specimen Type: PLASMA Comment: No hemolysis noted. Ordering Provider: TONI MCGHEE RID Report Released Date/Time: Jul 25, 2024 11:07 AM Reporting Lab: [facility] [address] [facility] [address] Performing Lab: [facility] [address] [facility] [address] [facility] COMPREHEN SIVE METABOLIC PANEL POTASSIUM [MOLES/VOLU ME] IN SERUM OR PLASMA 4.5 meq/L 3.5 - 5 07/25 Specimen Type: PLASMA Comment: No hemolysis noted. Ordering Provider: TONI MCGHEE RID Report Released Date/Time: Jul 25, 2024 11:07 AM Reporting Lab: [facility] [address] [facility] [address] Performing Lab: [facility] [address] [facility] [address] [facility] COMPREHEN SIVE METABOLIC PANEL CHLORIDE [MOLES/VOLU ME] IN SERUM OR PLASMA 106 meq/L 98 - 107 07/25 Specimen Type: PLASMA Comment: No hemolysis noted. Ordering Provider: TONI MCGHEE RID Report Released Date/Time: Jul 25, 2024 11:07 AM Reporting Lab: [facility] [address] [facility] [address] Performing Lab: [facility] [address] [facility] [address] [facility] COMPREHEN SIVE METABOLIC PANEL CARBON DIOXIDE, TOTAL [MOLES/VOLU ME] IN SERUM OR PLASMA 23 meq/L 22 - 31 07/25 Specimen Type: PLASMA Comment: No hemolysis noted. Ordering Provider: TONI MCGHEE RID Report Released Date/Time: Jul 25, 2024 11:07 AM Reporting Lab: [facility] [address] [facility] [address] Performing Lab: [facility] [address] [facility] [address] [facility] COMPREHEN SIVE METABOLIC PANEL CALCIUM [MASS/VOLUM E] IN SERUM OR PLASMA 9.9 mg/dL 8.4 - 10.4 07/25 Specimen Type: PLASMA Comment: No hemolysis noted. Ordering Provider: TONI MCGHEE RID Report Released Date/Time: Jul 25, 2024 11:07 AM Reporting Lab: [facility] [address] [facility] [address] Performing Lab: [facility] [address] [facility] [phone] [place] [address] COMPREHEN SIVE METABOLIC PANEL PROTEIN [MASS/VOLUM E] IN SERUM OR PLASMA 7.7 g/dL 6 - 8.6 07/25 Specimen Type: PLASMA Comment: No hemolysis noted. Ordering Provider: TONI MCGHEE RID Report Released Date/Time: Jul 25, 2024 11:07 AM Reporting Lab: [facility] [address] [facility] [address] Performing Lab: [facility] [address] [facility] [address] [facility] COMPREHEN SIVE METABOLIC PANEL ALBUMIN [MASS/VOLUM E] IN SERUM OR PLASMA 4.5 g/dL 3.4 - 5 07/25 Specimen Type: PLASMA Comment: No hemolysis noted. Ordering Provider: TONI MCGHEE RID Report Released Date/Time: Jul 25, 2024 11:07 AM Reporting Lab: [facility] [address] [facility] [address] Performing Lab: [facility] [address] [place] [phone] [facility] COMPREHEN SIVE METABOLIC PANEL BILIRUBIN.T OTAL [MASS/VOLUM E] IN SERUM OR PLASMA 1.4 mg/dL 0.2 - 1.2 07/25 H Specimen Type: PLASMA Comment: No hemolysis noted. Ordering Provider: TONI MCGHEE RID Report Released Date/Time: Jul 25, 2024 11:07 AM Reporting Lab: [facility] [address] [facility] [address] Performing Lab: [facility] [address] [facility] [address] [facility] COMPREHEN SIVE METABOLIC PANEL ALKALINE PHOSPHATASE [ENZYMATIC ACTIVITY/VO LUME] IN SERUM OR PLASMA 63 U/L 40 - 150 07/25 Specimen Type: PLASMA Comment: No hemolysis noted. Ordering Provider: TONI MCGHEE RID Report Released Date/Time: Jul 25, 2024 11:07 AM Reporting Lab: [facility] [address] [facility] [address] Performing Lab: [facility] [address] [facility] [address] [facility] COMPREHEN SIVE METABOLIC PANEL ASPARTATE AMINOTRANSF ERASE [ENZYMATIC ACTIVITY/VO LUME] IN SERUM OR PLASMA 20 U/L 5 - 34 07/25 Specimen Type: PLASMA Comment: No hemolysis noted. Ordering Provider: TONI MCGHEE RID Report Released Date/Time: Jul 25, 2024 11:07 AM Reporting Lab: [facility] [address] [facility] [address] Performing Lab: [facility] [address] [facility] [address] [facility] COMPREHEN SIVE METABOLIC PANEL ALANINE AMINOTRANSF ERASE [ENZYMATIC ACTIVITY/VO LUME] IN SERUM OR PLASMA 11 U/L 8 - 40 07/25 Specimen Type: PLASMA Comment: No hemolysis noted. Ordering Provider: TONI MCGHEE RID Report Released Date/Time: Jul 25, 2024 11:07 AM Reporting Lab: [facility] [address] [facility] [address] Performing Lab: [facility] [address] [facility] [address] [facility] COMPREHEN SIVE METABOLIC PANEL GLOMERULAR FILTRATION RATE/1.73 SQ M.PREDICTED [VOLUME RATE/AREA] IN SERUM, PLASMA OR BLOOD BY CREATININE- BASED FORMULA (CKD-EPI 2020) 94.3 60 07/25 Specimen Type: PLASMA Comment: No hemolysis noted. Ordering Provider: TONI MCGHEE RID Report Released Date/Time: Jul 25, 2024 11:07 AM Reporting Lab: [address] [address] Performing Lab: [address] [phone] [place] [address] HGA1C HEMOGLOBIN A1C/HEMOGLO BIN.TOTAL IN BLOOD 5.7 4.0 - 6.0 07/25 Specimen Type: BLOOD No comment entered. Ordering Provider: TONI MCGHEE RID Report Released Date/Time: Jul 25, 2024 11:07 AM Reporting Lab: [address] [address] Performing Lab: [address] [address] [facility] LIPID PANEL (STL) CHOLESTEROL [MASS/VOLUM E] IN SERUM OR PLASMA 219 mg/dL 0 - 200 07/25 H Specimen Type: PLASMA Comment: No hemolysis noted. Ordering Provider: TONI MCGHEE RID Report Released Date/Time: Jul 25, 2024 11:07 AM Reporting Lab: [address] [address] Performing Lab: [address] [address] [facility] LIPID PANEL (STL) TRIGLYCERID E [MASS/VOLUM E] IN SERUM OR PLASMA 128 mg/dL 0 - 150 07/25 Specimen Type: PLASMA Comment: No hemolysis noted. Ordering Provider: TONI MCGHEE RID Report Released Date/Time: Jul 25, 2024 11:07 AM Reporting Lab: [address] [address] Performing Lab: [address] [address] [facility] LIPID PANEL (STL) CHOLESTEROL IN LDL [MASS/VOLUM E] IN SERUM OR PLASMA BY CALCULATION 155 mg/dL 07/25 Specimen Type: PLASMA Comment: No hemolysis noted. Ordering Provider: TONI MCGHEE RID Report Released Date/Time: Jul 25, 2024 11:07 AM Reporting Lab: [place] [address] [address] [facility] [phone] Performing Lab: [facility] [address] [facility] [address] [facility] LIPID PANEL (STL) CHOLESTEROL IN HDL [MASS/VOLUM E] IN SERUM OR PLASMA 38 mg/dL 40 07/25 L Specimen Type: PLASMA Comment: No hemolysis noted. Ordering Provider: TONI MCGHEE RID Report Released Date/Time: Jul 25, 2024 11:07 AM Reporting Lab: [place] [address] [facility] [address] Performing Lab: [place] [address] [address] [facility] [phone] [facility] VITAMIN D, 25-HYDROX Y 25-HYDROXYV ITAMIN D3 [MASS/VOLUM E] IN SERUM OR PLASMA 36.3 ng/mL 30 - 96 07/25 Specimen Type: SERUM No comment entered. Ordering Provider: TONI MCGHEE RID Report Released Date/Time: Jul 25, 2024 11:07 AM Reporting Lab: [place] [address] [address] [facility] [phone] Performing Lab: [place] [address] [facility] [address] [facility] URINALYSI S W/ CX REFLEX (STL-PB) COLOR OF URINE [place] 07/25 Specimen Type: URINE No comment entered. Ordering Provider: TONI MCGHEE RID Report Released Date/Time: Jul 25, 2024 11:07 AM Reporting Lab: [place] [address] [address] [facility] [address] Performing Lab: [place] [address] [address] [phone] [facility] URINALYSI S W/ CX REFLEX (STL-PB) BILIRUBIN.T OTAL [PRESENCE] IN URINE BY TEST STRIP Negativ emg/dL 07/25 Specimen Type: URINE No comment entered. Ordering Provider: TONI MCGHEE RID Report Released Date/Time: Jul 25, 2024 11:07 AM Reporting Lab: [place] [address] [facility] [address] Performing Lab: [place] [address] [facility] [address] [facility] URINALYSI S W/ CX REFLEX (STL-PB) PH OF URINE BY TEST STRIP 5.5 5.0 - 8.0 07/25 Specimen Type: URINE No comment entered. Ordering Provider: TONI MCGHEE RID Report Released Date/Time: Jul 25, 2024 11:07 AM Reporting Lab: [place] [address] [facility] [address] Performing Lab: [facility] [address] [facility] [address] [facility] URINALYSI S W/ CX REFLEX (STL-PB) ERYTHROCYTE S [#/VOLUME] IN URINE SEDIMENT BY MICROSCOPY HIGH POWER FIELD 3 /[HPF] 0 - 5 07/25 Specimen Type: URINE No comment entered. Ordering Provider: TONI MCGHEE RID Report Released Date/Time: Jul 25, 2024 11:07 AM Reporting Lab: [facility] [address] [facility] [address] Performing Lab: [place] [address] [facility] [address] [facility] URINALYSI S W/ CX REFLEX (STL-PB) APPEARANCE OF URINE Ex.Turb id 07/25 Specimen Type: URINE No comment entered. Ordering Provider: TONI MCGHEE RID Report Released Date/Time: Jul 25, 2024 11:07 AM Reporting Lab: [facility] [address] [facility] [address] Performing Lab: [address] [address] [facility] URINALYSI S W/ CX REFLEX (STL-PB) NITRITE [PRESENCE] IN URINE BY TEST STRIP Negativ emg/dL 07/25 Specimen Type: URINE No comment entered. Ordering Provider: TONI MCGHEE RID Report Released Date/Time: Jul 25, 2024 11:07 AM Reporting Lab: [address] [address] Performing Lab: [address] [phone] URINALYSI S W/ CX REFLEX (STL-PB) BACTERIA [PRESENCE] IN URINE SEDIMENT BY LIGHT MICROSCOPY RARE/[H PF] 07/25 Specimen Type: URINE No comment entered. Ordering Provider: TONI MCGHEE RID Report Released Date/Time: Jul 25, 2024 11:07 AM Reporting Lab: [address] [address] Performing Lab: [address] [phone] [place] [address] URINALYSI S W/ CX REFLEX (STL-PB) EPITHELIAL CELLS [#/AREA] IN URINE SEDIMENT BY MICROSCOPY LOW POWER FIELD 3 /[HPF] 0 - 5 07/25 Specimen Type: URINE No comment entered. Ordering Provider: TONI MCGHEE RID Report Released Date/Time: Jul 25, 2024 11:07 AM Reporting Lab: [address] [address] Performing Lab: [address] [phone] [address] URINALYSI S W/ CX REFLEX (STL-PB) MUCUS [PRESENCE] IN URINE SEDIMENT BY LIGHT MICROSCOPY OCC/[LP F] 07/25 Specimen Type: URINE No comment entered. Ordering Provider: TONI MCGHEE RID Report Released Date/Time: Jul 25, 2024 11:07 AM Reporting Lab: [facility] [address] [facility] [address] Performing Lab: [facility] [address] [place] [phone] [facility] URINALYSI S W/ CX REFLEX (STL-PB) URATE CRYSTALS AMORPHOUS [PRESENCE] IN URINE SEDIMENT BY LIGHT MICROSCOPY MANY/[H PF] 07/25 Specimen Type: URINE No comment entered. Ordering Provider: TONI MCGHEE RID Report Released Date/Time: Jul 25, 2024 11:07 AM Reporting Lab: [address] [address] Performing Lab: [address] [phone] [place] [address] URINALYSI S W/ CX REFLEX (STL-PB) GLUCOSE [MASS/VOLUM E] IN URINE BY TEST STRIP Normalm g/dL 07/25 Specimen Type: URINE No comment entered. Ordering Provider: TONI MCGHEE RID Report Released Date/Time: Jul 25, 2024 11:07 AM Reporting Lab: [address] [address] Performing Lab: [address] [address] [facility] URINALYSI S W/ CX REFLEX (STL-PB) PROTEIN [MASS/VOLUM E] IN URINE BY TEST STRIP 20 mg/dL 07/25 H Specimen Type: URINE No comment entered. Ordering Provider: TONI MCGHEE RID Report Released Date/Time: Jul 25, 2024 11:07 AM Reporting Lab: [address] [address] Performing Lab: [address] [address] [facility] URINALYSI S W/ CX REFLEX (STL-PB) URN.UROBILI NOGEN Normalm g/dL 07/25 Specimen Type: URINE No comment entered. Ordering Provider: TONI MCGHEE RID Report Released Date/Time: Jul 25, 2024 11:07 AM Reporting Lab: [facility] [address] [facility] [address] Performing Lab: [facility] [address] [facility] [address] [facility] URINALYSI S W/ CX REFLEX (STL-PB) HEMOGLOBIN [MASS/VOLUM E] IN URINE BY TEST STRIP 1+mg/dL 07/25 H Specimen Type: URINE No comment entered. Ordering Provider: TONI MCGHEE RID Report Released Date/Time: Jul 25, 2024 11:07 AM Reporting Lab: [address] [address] Performing Lab: [place] [address] [facility] [phone] [place] [address] URINALYSI S W/ CX REFLEX (STL-PB) KETONES [MASS/VOLUM E] IN URINE BY TEST STRIP Negativ emg/dL 07/25 Specimen Type: URINE No comment entered. Ordering Provider: TONI MCGHEE RID Report Released Date/Time: Jul 25, 2024 11:07 AM Reporting Lab: [facility] [address] [facility] [address] Performing Lab: [place] [address] [facility] [phone] [place] [address] URINALYSI S W/ CX REFLEX (STL-PB) URN.LEUK.ES T. Negativ emg/dL 07/25 Specimen Type: URINE No comment entered. Ordering Provider: TONI MCGHEE RID Report Released Date/Time: Jul 25, 2024 11:07 AM Reporting Lab: [facility] [address] [facility] [address] Performing Lab: [facility] [address] [facility] [address] [facility] URINALYSI S W/ CX REFLEX (STL-PB) SPECIFIC GRAVITY OF URINE 1.022 07/25 Specimen Type: URINE No comment entered. Ordering Provider: TONI MCGHEE RID Report Released Date/Time: Jul 25, 2024 11:07 AM Reporting Lab: [facility] [address] [place] [phone] Performing Lab: [facility] [address] [place] [phone] [facility] LIPID PANEL (STL) CHOLESTEROL [MASS/VOLUM E] IN SERUM OR PLASMA 220 mg/dL 0 - 200 03/09 H Specimen Type: PLASMA Comment: No hemolysis noted. Ordering Provider: TONI MCGHEE RID Report Released Date/Time: Feb 28, 2024 02:54 PM Reporting Lab: [facility] [address] [place] [phone] Performing Lab: [address] [address] [facility] LIPID PANEL (STL) TRIGLYCERID E [MASS/VOLUM E] IN SERUM OR PLASMA 137 mg/dL 0 - 150 03/09 Specimen Type: PLASMA Comment: No hemolysis noted. Ordering Provider: TONI MCGHEE RID Report Released Date/Time: Feb 28, 2024 02:54 PM Reporting Lab: [facility] [address] [place] [phone] Performing Lab: [facility] [address] [place] [phone] [facility] LIPID PANEL (STL) CHOLESTEROL IN LDL [MASS/VOLUM E] IN SERUM OR PLASMA BY CALCULATION 156 mg/dL 03/09 Specimen Type: PLASMA Comment: No hemolysis noted. Ordering Provider: TONI MCGHEE RID Report Released Date/Time: Feb 28, 2024 02:54 PM Reporting Lab: [facility] [address] [place] [phone] Performing Lab: [facility] [address] [place] [phone] [facility] LIPID PANEL (STL) CHOLESTEROL IN HDL [MASS/VOLUM E] IN SERUM OR PLASMA 37 mg/dL 40 03/09 L Specimen Type: PLASMA Comment: No hemolysis noted. Ordering Provider: TONI MCGHEE RID Report Released Date/Time: Feb 28, 2024 02:54 PM Reporting Lab: [facility] [address] [place] [phone] Performing Lab: [facility] [address] [place] [phone] [place] [address] TSH W/ REFLEX FT4 (STL) THYROTROPIN [UNITS/VOLU ME] IN SERUM OR PLASMA 0.252 u[IU]/m L 0.47 - 5 03/09 L Specimen Type: PLASMA No comment entered. Ordering Provider: TONI MCGHEE RID Report Released Date/Time: Feb 28, 2024 02:54 PM Reporting Lab: [address] [address] Performing Lab: [address] [address] [facility] TSH W/ REFLEX FT4 (STL) FREE T4(REFLEX) 1.07 ng/mL 0.7 - 1.48 03/09 Specimen Type: PLASMA No comment entered. Ordering Provider: TONI MCGHEE RID Report Released Date/Time: Feb 28, 2024 02:54 PM Reporting Lab: [address] [address] Performing Lab: [address] [phone] [facility] VITAMIN D, 25-HYDROX Y 25-HYDROXYV ITAMIN D3 [MASS/VOLUM E] IN SERUM OR PLASMA 42.2 ng/mL 30 - 96 03/09 Specimen Type: SERUM No comment entered. Ordering Provider: TONI MCGHEE RID Report Released Date/Time: Feb 28, 2024 02:54 PM Reporting Lab: [address] [address] Performing Lab: [address] [address] [facility] Vital Signs Combined list of inpatient and outpatient Vital Signs from Department of Defense and Veterans Affairs, ranging from 12 months to all on record, depending upon the facility. Vital Sign Value Date Comments Source SYSTOLIC BLOOD PRESSURE 124 11/20/2024 14:45:48 [facility] DIASTOLIC BLOOD PRESSURE 83 11/20/2024 14:45:[facility] PULSE OXIMETRY 98 % 11/20/2024 14:45:48 S TElvis [facility] WEIGHT 154.4 11/20/2024 14:45:[facility] BMI 25 kg/m2 11/20/2024 14:45[facility] PAIN 6 11/20/2024 14:45:[facility] TEMPERATURE 97.3 11/20/2024 14:45:48 [facility] PULSE 73 11/20/2024 14:45:[facility] RESPIRATION 18 11/20/2024 14:45:48 [facility] SYSTOLIC BLOOD PRESSURE 113 07/25/2024 10:09:55 [facility] DIASTOLIC BLOOD PRESSURE 75 07/25/2024 10:09:55 [facility] PULSE OXIMETRY 99 07/25/2024 10:09:55 S Franco [facility] WEIGHT 149.8 07/25/2024 10:09:55 [facility] BMI 24 kg/m2 07/25/2024 10:09:[facility] PAIN 7 07/25/2024 10:09:[facility] TEMPERATURE 97.4 07/25/2024 10:09:55 [facility] PULSE 64 07/25/2024 10:09:[facility] RESPIRATION 20 07/25/2024 10:09:55 [facility] SYSTOLIC BLOOD PRESSURE 119 02/28/2024 14:03:01 [facility] DIASTOLIC BLOOD PRESSURE 79 02/28/2024 14:03:01 [facility] PULSE OXIMETRY 98 02/28/2024 14:03:01 Tabatha Gamez [facility] WEIGHT 153.6 02/28/2024 14:03:01 Elvis [facility] BMI 25 kg/m2 02/28/2024 14:03:01 Elvis [facility] PAIN 5 02/28/2024 14:03:01 [facility] Rina [facility] TEMPERATURE 98.3 02/28/2024 14:03:01 Elvis [facility] PULSE 79 02/28/2024 14:03:01 [facility] Rina [facility] RESPIRATION 20 02/28/2024 14:03:01 [facility] Encounters Combined list of: 1) Encounters from Department of Veterans Affairs facilities going backup to the last 18 months, not all MD inpatient encounters are included; 2) Encounters from the Department of [facility] facilities going backup to 280 months. Location Location Details Encounter Type Encounter Number Reason For Visit Attending Provider ADM Date DC Date Status Disposition Source [facility] Outpatient Encounter [id number] [facility] HUDSONWALLY Mays 10/[address] [facility] Outpatient Encounter [id number] [place] MARK Ingram 11/[address] [facility] Outpatient Encounter [id number] BEHZAD DE LA ROSA 02/22 [facility] OFFICE O/P EST LOW 20 MIN [id number] Diagnos is: ICD-10- CM F32.A Depress ion, unspeci TONI Khan RID D 02/27 [facility] OFFICE O/P EST MOD 30 MIN [id number] Diagnos is: ICD-10- CM F43.12 Post-tr aumatic stress disorde r, chronic GBADEBO-GO YEA,DARREN VELIA 02/27 [facility] Outpatient Encounter [id number] 04/06 [facility] Outpatient Encounter [id number] REMY TEJADAIFER A 04/06 [facility] Outpatient Encounter [id number] REMY ELLIOTT FFKELTON 04/20 [facility] Outpatient Encounter [id number] REMY ELLIOTT 04/20 [facility] Outpatient Encounter [id number] 04/23 [facility] Outpatient Encounter [id number] DARREN RIOS 04/24 [facility] Outpatient Encounter [id number] 04/27 [facility] Outpatient Encounter [id number] 07/18 [facility] OFFICE O/P EST MOD 30 MIN [id number] Diagnos is: ICD-10- CM M54.32 Sciatic a, left side TONI MCGHEE RID 07/25 [facility] Outpatient Encounter [id number] 07/[address] [facility] OFFICE O/P EST MOD 30 MIN [id number] Diagnos is: ICD-10- CM F43.12 Post-tr aumatic stress disorde r, chronic GBADEBO-DARREN NANCEODELE 08/07 [facility] Outpatient Encounter [id number] SHARONDAJAYREMY A 10/[address] [facility] Outpatient Encounter [id number] 11/[address] [facility] Outpatient Encounter [id number] 11/20 [facility] Outpatient Encounter [id number] 11/20 [facility] OFFICE O/P EST MOD 30 MIN [id number] Diagnos is: ICD-10- CM F43.12 Post-tr aumatic stress disorde r, chronic GBADEBO-DARREN NANCEODELE 11/20 [facility] OFFICE O/P EST LOW 20 MIN [id number] Diagnos is: ICD-10- CM M25.559 Pain in unspeci fied hip TAZ,ING RID D 11/20 [facility] Social History Combined list of available smoking, tobacco, and other social history from Department of Defense and Veterans Affairs facilities. Social History Type Response Date Comment [facility] e Tobacco smoking status MEIS VA-TOBACCO NEVER USED OTHER TYPE 11/14/2024 [facility] History of tobacco use VA-TOBACCO USE EVERY DAY CIGARETTES 11/14/2024 [facility] History of tobacco use VA-TOBACCO USE WI 30 MIN OF WAKEUP 10/12/2023 [facility] History of tobacco use MD-TOBACCO USE WI 30 MIN OF WAKEUP 10/29/2021 [facility] History of tobacco use MD-TOBACCO USER EVERY DAY 11/27/2020 [facility] This section is an empty social history section. [facility] Plan of Care List of future care activities from Department of Veterans Affairs facilities. Additional future care activities may be listed in the Assessment and Plan section. Date/Time Care Activity Care Activity Detail Facili ty 12/28/2024 AMBULATORY - MEDICINE AMBULATORY - MEDICI NE [facility]
--- OUTSIDE RECORDS SUMMARY | 2024-11-21 11:32 | XMS_ITS | Encounter Summary ---
Author Name [facility] [facility] [place] Address [address] [place] [address] Care Team Providers Care Lidder Name Role Phone STACY MCGHEE Primary Care Provider Unavailabl e Insurance [...] ION RX PLAN Sep 10, 2003 [id number] [phone] LU PEÑA PATIENT [facility] M[facility] ANNIE LE Sep 10, 2003 [id number] [phone] LU PEÑA PATIENT [facility] POINT OF SERVICE [facility] ANNIE LE Sep 10, 2003 [id number] [phone] LU PEÑA PATIENT Selected Encounter This section includes the information on record at [place] for the Encounter. Date/Time Encounter Type Encounter Description Reason Provider Source Nov 20, 2024 02:30 PM OFFICE O/P EST LOW 20 MIN PRIMARY CARE/MEDICINE ICD-10-CM M25.559 Pain in unspecified hip STACY MCGHEE I[facility] Encounter Template Text not used by [facility] Assessments - Encounter Diagnoses This section includes the primary and secondary diagnoses documented for the Encounter. Date/Time Primary/Secondary Diagnosis Diagnosis Name Provider Source Nov 20, 2024 03:39 PM PRIMARY Pain in unspecified hip STACY MCGHEE [facility] Nov 20, 2024 03:39 PM SECONDARY Encounter for immunization STACY MCGHEE [facility] Plan of Treatment: Future Appointments (+ 6 months) and Future Tests (+/- 45 days) The Plan of Treatment section includes future care activities for the patient from [facility] [place] [facility] This section includes future appointments and future orders which are active, pending or scheduled. Future Appointments This section includes appointments that were scheduled to occur 6 months from the date of the Encounter, up to a maximum of 20 appointments. The data comes from all [place] treatment facilities. Appointment Date/Time Appointment Type Appointme nt Facility Name Dec 28, 2024 11:30 AM AMBULATORY - MEDICINE [facility] Active, Pending, and Scheduled Orders This section includes a listing of several types of active, pending, and scheduled orders, including clinic medications orders, diagnostic test orders, procedure orders and consult orders; where the start date of the order is 45 days before the date of the Encounter or 45 days after the date of theEncounter. The data comes from all [facility]. Test Date/Time Test Type Test Details Facility Name Oct 15, 2024 12:00 AM Laboratory - Chemistry Order CPK GREEN LI/HEP BLD/PLAS PLASMA SP [facility] Nov 20, 2024 12:00 AM Laboratory - Chemistry Order RHEUMATOID FACTOR (STL) GOLD/RED SST SERUM SP [facility] Nov 20, 2024 12:00 AM Laboratory - Chemistry Order PGX PANEL MORGAN BLOOD SP ONCE [facility] Nov 20, 2024 12:00 AM Laboratory - Chemistry Order ANTI-NUCLEAR ANTIBODY (STL-PB) GOLD/RED SST SERUM SP [facility] Nov 20, 2024 12:00 AM Laboratory - Chemistry Order COMPREHENSIVE METABOLIC PANEL GREEN LI/HEP BLD/PLAS PLASMA SP [facility] Nov 20, 2024 12:00 AM Laboratory - Chemistry Order LIPID PANEL (STL) GREEN LI/HEP BLD/PLAS PLASMA SP ONCE [facility] Nov 20, 2024 12:00 AM Laboratory - Chemistry Order CBC BLOOD SP [facility] Nov 20, 2024 12:00 AM Laboratory - Chemistry Order ESR ISED(STL) BLOOD LAVENDER SP [facility] Nov 20, 2024 12:00 AM Laboratory - Chemistry Order VITAMIN D, 25-HYDROXY GOLD/RED SST SERUM SP [facility] Nov 20, 2024 12:00 AM Laboratory - Chemistry Order B12 GOLD/RED SST SERUM SP [facility] Nov 20, 2024 12:00 AM Laboratory - Chemistry Order URINALYSIS W/ CX REFLEX (STL-PB) URN - CLEAN CATCH URINE SP [facility] Nov 20, 2024 12:00 AM Imaging - General Radiology Order HIPS W/PELVIS BILAT 4 OR MORE VIEWS AP Pelvis, Frog [facility] Nov 20, 2024 03:33 PM Pharmacy - Clinic Medication Order [facility] Vital Signs: All taken on the encounter date This section contains inpatient and outpatient Vital Signs collected on the date of the Encounter. Date/Time Temperature Pulse Blood Pressure Respiratory Rate SP02 Pain Height Weight Body Mass Index Source Nov 20, 2024 02:45 PM 97.3 F 73 /min 124/83 mm[Hg] 18 /min 98 % 6 154.4 lb 25 [facility] Immunizations: All administered on the encounter date This section contains immunizations associated to the Encounter. Immunization Series Date Issued Administered By Site Reaction Lot Number CVX Code Drug [employer] Switchboard Operator Comment(s) Source PNEUMOCOCCAL CONJUGATE PCV20, POLYSACCHARID E [id number] CONJUGATE, ADJUVANT, PF Nov 20, 2024 ZULEIMA DE LA ROSA S RIGHT DELTO ID [id number] JOYCE Robertson AT [facility] Social History: Smoking Status (Most current) and Tobacco Use (All prior to encounter date) This section includes the most current, and the historical, smoking and tobacco- related health factors from the [place] facility where the Encounter took place. Current Smoking Status This section includes the most current smoking, or tobacco-related health factor, from the [place] facility where the Encounter took place. Date/Time Current Smoking Status Comment Facil ity Oct 29, 2021 02:00 PM VA-TOBACCO USER EVERY DAY [facility] Tobacco Use History This section includes a history of the smoking, or tobacco-related health factors, that were collected on or before the date of the Encounter. The data comes from the [place] facility where the Encounter took place. Date/Time Smoking Status/Tobacco Use Comment F acility Oct 29, 2021 02:00 PM VA-TOBACCO USE ADVICE [facility] Oct 29, 2021 02:00 PM VA-TOBACCO USE GUYLINE OPERATOR NO [facility] Oct 29, 2021 02:00 PM VA-TOBACCO USE MED NO [facility] Oct 29, 2021 02:00 PM VA-TOBACCO USE WI 30 MIN OF WAKEUP [facility] Oct 29, 2021 02:00 PM VA-TOBACCO USER EVERY DAY [facility] Nov 27, 2020 03:00 PM VA-TOBACCO DOESNT USE WI 30 MIN WAKEUP [facility] Nov 27, 2020 03:00 PM VA-TOBACCO USE 30 YEARS OR MORE [facility] Nov 27, 2020 03:00 PM VA-TOBACCO USE ADVICE [facility] Nov 27, 2020 03:00 PM VA-TOBACCO USE GUYLINE OPERATOR NO [facility] Nov 27, 2020 03:00 PM VA-TOBACCO USE MED NO [facility] Nov 27, 2020 03:00 PM VA-TOBACCO USER EVERY DAY [facility] Encounter Notes: All associated encounter notes This section contains the clinical notes associated to the Encounter. Date/Time Encounter Note(s) Provider Source Nov 20, 2024 03:32 PM PRIMARY CARE NOTE: LOCAL TITLE: PRIMARY CARE PROVIDER ESTABLISHED VISIT [facility] STANDARD TITLE: PRIMARY CARE NOTE DATE OF NOTE: NOV 20, 2024@15:32 ENTRY DATE: NOV 20, 2024@15:33:34 AUTHOR: STACY MCGHEE EXP COSIGNER: URGENCY: STATUS: COMPLETED Patient is 59 and BLACK OR Self Identified Gender - Woman Reason for visit:Scheduled follow-up Chief Complaint: f/u History of Present Illness: Patient c/o of bilateral lower back pain radiating to her hips, Right > left . Found the atorvastatin gave her muscle aches and stopped the medication . No longer has urgenty . She did receive the letter of her ct urogram done in Sep 2024 Problem List: 1) Sciatica 2) Chronic depression 3) Benign essential hypertension Immunization: ADMINISTERED Immunization Series Date Facility Reaction Info COVID-19 (MODERNA), MRNA, LNP-S,* 1 02/08/2022 [facility] <C> COVID-19 (MODERNA), MRNA, LNP-S,* 3 10/01/2021 [facility] <C> COVID-19 (MODERNA), MRNA, LNP-S,* 3 03/21/2021 [facility]* COVID-19 (MODERNA), MRNA, LNP-S,* 2 06/10/2020 [facility] * COVID-19 (MODERNA), MRNA, LNP-S,* 1 05/13/2020 [facility] * COVID-19 (PFIZER), MRNA, LNP-S, * 02/28/2024 [facility] INFLUENZA, SPLIT VIRUS, QUADRIVA* 01/25/2023 [facility] INFLUENZA, SPLIT VIRUS, QUADRIVA* 02/08/2022 [facility] INFLUENZA, SPLIT VIRUS, TRIVALEN* 02/28/2024 [facility] INFLUENZA, SPLIT VIRUS, TRIVALEN* 1 02/28/2014 [facility] INFLUENZA, UNSPECIFIED FORMULATI* 02/09/2021 PCP TDAP 11/27/2020 [facility] ZOSTER RECOMBINANT 2 03/25/2021 [facility] ZOSTER RECOMBINANT 1 11/27/2020 [facility] CONTRAINDICATED No data available REFUSED ======= No data available <C> See the Detailed Immunizations Health Summary Component[DIM] for Comments * Value is truncated; see the Detailed Immunizations Health Summary Component[DIM] for complete text Medication Review: The essential med list for review which includes the patient's active VA prescriptions and if applicable, remote VA prescriptions, non-VA prescriptions, and discontinued VA prescriptions within the last 90 days and known allergies including local and remote allergies have been reviewed. Allergies:Patient has answered NKA Active and Recently Outpatient Medications (excluding Supplies): Active Outpatient Medications Status = 1) AMLODIPINE BESYLATE 5MG TAB TAKE ONE TABLET BY MOUTH ONCE A ACTIVE DAY Indication: FOR HIGH BLOOD PRESSURE 2) BUPROPION HCL 75MG TAB TAKE ONE TABLET BY MOUTH EVERY 8 ACTIVE (S) HOURS Indication: FOR ANXIETY AND PTSD 3) LIDOCAINE 5% PATCH APPLY 1 PATCH TO SKIN SITE ONCE A DAY ACTIVE APPLY PATCH AND PRESS FIRMLY FOR 10-15 SECONDS. KEEP ON FOR 12 HOURS THEN REMOVE PATCH FOR 12 HOURS. Indication: FOR LOCAL ANESTHESIA 4) NALTREXONE (EQV-REVIA) 50MG TAB TAKE ONE-HALF TABLET BY HOLD MOUTH ONCE A DAY Indication: FOR ASSISTANCE WITH DEPENDENCY Active Non-VA Medications Status = 1) Non-VA AMLODIPINE BESYLATE 5MG TAB 5MG BY MOUTH ONCE A DAY ACTIVE 2) Non-VA METOPROLOL SUCCINATE 200MG SA TAB 100MG BY MOUTH ONCE ACTIVE A DAY 6 Total Medications Physical Exam VITALS (most recent, as listed in the electronic record): B/P: 124/83 (11/20/2024 14:45) Pulse: 73 (11/20/2024 14:45) Temperature: 97.3 F [36.3 C] (11/20/2024 14:45) Weight: 154.4 lb [70.03 kg] (11/20/2024 14:45) Height: 66 in [167.6 cm] (09/21/2022 11:07) BMI: 25.0 Pain: 6 (11/20/2024 14:45) (0-10 scale) General: WD, WN in NAD, pleasant affect Skin: no lesions or rashes noted. HEENT: NC/AT, PERRL, EOMI, no scleral icterus, TMs intact, posterior pharynx is clear, no tonsillar adenopathy Neck: Supple, no cervical CHAPIN, no thyromegaly or goiters palpated. Lungs: CTA bilat, no W/R/R Heart: RRR, nl S1/S2, no murmurs, no S3/S4 gallops. Abdomen: Soft, NT/ND. No HSM or masses palpated. Musculoskeletal: 2+ deep tendon reflexes bilaterally, 5/5 motor and sensory intact of UE/LE Back: Normal curvature and mobility. No CVA tenderness. 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 - will order xray of hip once done - if AVN remains present will refer to Ortho - check cbc, cmp est , crp Rh and Jimena 2 htn -stable -continue mded - check cmp an dlipids RTC: 1 month - vvc CLINICAL REMINDERS COMPLETED /arianne/ STACY MCGHEE Signed: 11/20/2024 15:40 STACY MCGHEE [facility] Nov 20, 2024 02:48 PM NURSING NOTE: LOCAL TITLE: 5 PACT FACE TO FACE NOTE ST[facility] STANDARD TITLE: NURSING NOTE DATE OF NOTE: NOV 20, 2024@14:48 ENTRY DATE: NOV 20, 2024@14:48:11 AUTHOR: KONG DE LA ROSA EXP COSIGNER: URGENCY: STATUS: COMPLETED V15 PACT FACE TO FACE NOTE STL Has ADDENDA Provider Visit: Patient Identifiers : Full Name Date of Reason for visit: Established Follow-Up Mode of Arrival: Ambulatory Allergy Review: ALLERGIES/ADVERSE REACTIONS - NONE FOUND Allergy list reviewed and remains current. Recent Vital Signs: Temperature: 97.3 F [36.3 C] (11/20/2024 14:45) Pulse: 73 (11/20/2024 14:45) Respiration: 18 (11/20/2024 14:45) B/P: 124/83 (11/20/2024 14:45) Pain: 6 (11/20/2024 14:45) Wt: 154.4 lb [70.03 kg] (11/20/2024 14:45) Ht: 66 in [167.6 cm] (09/21/2022 11:07) BMI: 25.0 POX: 98% (11/20/2024 14:45) PERSONAL HEALTH INVENTORY Notes: No data available for PHI note titles PERSONAL HEALTH INVENTORY - MAP: 07/25/2024 Personal Health Plan [place], [place], [place] (MAP) MY CHILDREN 06/08/2022 Personal Health Plan [place], [place], [place] (MAP) MAKING SURE MY CHILDREN ARE HAPPY MATTERS MOST TO ME. 12/29/2020 Personal Health Plan [place], [place], [place] (MAP) My family. Would you like to discuss any personal problem, family problem, alcohol use, drug use, or a mental or emotional illness? No My [facility] ([facility]), please select appointment type: Face to face: Yes-Do you have an upgraded (Premium) account which gives you the added benefit of Secure Messaging with your Primary Care Provider and refilling your prescriptions online? Yes- Done Contact provided Primary Care phone number and encouraged to call if any questions or concerns. Review that after hours nurse line [phone] and emergency room are available 01/11 for patient use. Contact verbalized good understanding. Alcohol Use Screen (AUDIT-C) - V: Alcohol Screen: SCREEN FOR ALCOHOL (AUDIT-C) An alcohol screening test (AUDIT-C) was negative (score=3). 1. How often did you have a drink containing alcohol in the past year? Consider a drink to be a 12 ounce can or bottle of regular beer, 8 ounces of malt liquor, a 5 ounce glass of table wine, or a 1.5 ounce shot of liquor (like scotch, gin, or vodka). Two to four times a month 2. How many drinks containing alcohol did you have on a typical day when you were drinking in the past year? Three or four drinks 3. How often did you have 4 or more drinks on one occasion in the past year? Never /es/ SHAREWALLY DE LA ROSA LICENSED PRACTICAL NURSE Signed: 11/20/2024 14:51 11/20/2024 ADDENDUM STATUS: COMPLETED Pneumococcal Conjugate Vaccine (PCV15/PCV20/PCV21) - L,N,P,PH,U: PCV20 (Prevnar 20) Administered: PNEUMOCOCCAL CONJUGATE PCV20, POLYSACCHARIDE [id number] CONJUGATE, ADJUVANT, PF Date Administered: Nov 20, 2024 14:30 [employer] Switchboard Operator: JOYCE Lot: [id number] Exp Date: Nov 08, 2025 [facility]: [id number] Admin Route/Site: INTRAMUSCULAR/RIGHT DELTOID Dosage: 0.5mL Vaccine Information Statement(s): PNEUMOCOCCAL CONJUGATE VACCINE (PCV) VIS September 06, 2024 (SWEDISH) Order By: Stacy Mcghee Administered By: Kong De La Rosa The Pneumococcal Vaccine Information Statement (VIS) was reviewed with the patient/caregiver which lists the benefits and risks of not receiving the Pneumococcal vaccine. The patient/caregiver denied any prior severe reaction to this vaccine or its components or a severe allergic reaction such as anaphylaxis to any vaccine or any injectable therapy. The patient/caregiver gave verbal consent to receive the vaccine. /arianne/ KONG DE LA ROSA LICENSED PRACTICAL NURSE Signed: 11/20/2024 15:35 KONG DE LA ROSA [facility]
--- OUTSIDE RECORDS SUMMARY | 2024-11-21 11:33 | XMS_ITS | Encounter Summary ---
Author Name [facility] Address [address] [place] [address] Care Team Providers Care Senior Director Insight Name Role Phone STACY MCGHEE Primary Care [...] ION RX PLAN Sep 10, 2003 [phone] LU OCAMPO PATIENT [facility] Sep 10, 2003 [id number] [phone] LU OCAMPO PATIENT [facility] POINT OF SERVICE [facility] ANNIE LE Sep 10, 2003 [id number] LU OCAMPO PATIENT Selected Encounter This section includes the information on record at [place] for the Encounter. Date/Time Encounter Type Encounter Description Reason Provider Source Jul 25, 2024 10:00 AM OFFICE O/P EST MOD 30 MIN PRIMARY CARE/MEDICINE ICD-10-CM M54.32 Sciatica, left side STACY MCGHEE IHDio Encounter Template Text not used by [facility] Assessments - Encounter Diagnoses This section includes the primary and secondary diagnoses documented for the Encounter. Date/Time Primary/Secondary Diagnosis Diagnosis Name Provider Source Jul 25, 2024 11:18 AM PRIMARY Sciatica, left side TAZSTACY [facility] Jul 25, 2024 11:18 AM SECONDARY Depression, unspecified TAZSTACY Marcelo [facility] Jul 25, 2024 11:18 AM SECONDARY Essential (primary) hypertension TAZSTACY Marcelo [facility] Jul 25, 2024 11:18 AM SECONDARY Lower abdominal pain, unspecified TAZSTACY Marcelo [facility] Jul 25, 2024 11:18 AM SECONDARY Personal history of urinary (tract) infections TAZSTACY [facility] Plan of Treatment: Future Appointments (+ 6 months) and Future Tests (+/- 45 days) The Plan of Treatment section includes future care activities for the patient from all [place] treatmentfacilities. This section includes future appointments and future orders which are active, pending or scheduled. Future Appointments This section includes appointments that were scheduled to occur 6 months from the date of the Encounter, up to a maximum of 20 appointments. The data comes from all [place] treatment facilities. Appointment Date/Time Appointment Type Appointme nt Facility Name Aug 07, 2024 11:00 AM AMBULATORY - PSYCHIATRY [facility] Oct 05, 2024 10:30 AM AMBULATORY - NONE [facility] Nov 20, 2024 02:00 PM AMBULATORY - PSYCHIATRY [facility] Nov 20, 2024 02:30 PM AMBULATORY - MEDICINE [facility] Dec 28, 2024 11:30 AM AMBULATORY - MEDICINE [facility] Lab Results: +/- 30 days of the encounter This section includes the Chemistry and Hematology Lab Results on record with [place] for the patient. Radiology Reports and Pathology Reports are provided separately, in subsequent sections. Lab Results This section contains the Chemistry/Hematology Results that were resulted 30 days before or 30 daysafter the date of the Encounter. Date/Time Source Result Type Result - Unit Interpretation Reference Range Specimen Type Comment Jul 25, 2024 11:27 AM [facility] LIPID PANEL (STL) PLASMA Specimen Type: PLASMA Comment: No hemolysis noted. Ordering Provider: STACY MCGHEE Report Released Date/Time: Jul 25, 2024 11:07 AM Reporting Lab: [facility] [address] [place] [phone] Performing Lab: [facility] [address] [place] [phone] CHOLESTEROL 219 mg/dL H 0-200 TRIGLYCERIDE 128 mg/dL 0-150 CALCULATED LDL 155 mg/dL HDL(New) 38 mg/dL L >40 Jul 25, 2024 11:27 AM [facility] HGA1C BLOOD Specimen Type: BLOOD No comment entered. Ordering Provider: STACY MCGHEE Report Released Date/Time: Jul 25, 2024 11:07 AM Reporting Lab: [facility] [address] [place] [phone] Performing Lab: [address] [phone] HGA1C 5.7 4.0-6.0 Jul 25, 2024 11:27 AM [facility] VITAMIN D, 25-HYDROXY SERUM Specimen Type: SE RUM No comment entered. Ordering Provider: STACY MCGHEE Report Released Date/Time: Jul 25, 2024 11:07 AM Reporting Lab: [facility] [address] [place] [phone] Performing Lab: [address] [phone] VITAMIN D, 25-HYDROXY 36.3 ng/mL 30-96 Jul 25, 2024 11:27 AM [facility] CBC BLOOD Specimen Type: BLOOD No comment entered. Ordering Provider: STACY MCGHEE Report Released Date/Time: Jul 25, 2024 11:07 AM Reporting Lab: [facility] [address] [place] [phone] Performing Lab: [facility] [address] [place] [phone] WBC 8.8 10*3/uL 3.6-11.2 RBC 4.97 10*6/uL 3.60-5.00 HGB 14.2 g/dL 11.0-14.9 HCT 43.5 H 32.6-43.4 MCV 87.5 fL 80.0-100.0 MCH 28.6 pg 27.0-34.0 MCHC 32.6 g/dL L 33.0-36.0 PLT 353 10*3/uL 150-400 MPV 9.6 fL 7.5-11.2 RDW 13.1 11.8-15.1 LYMPHOCYTES, AUTO % 36 MONOCYTES, AUTO % 7 NEUTROPHILS, AUTO % 54 EOSINOPHILS, AUTO % 2 BASOPHILS, AUTO % 1 LYMPHOCYTES, ABSOLUTE 3.18 10*3/uL 0.77- 4.50 MONOCYTES, ABSOLUTE 0.57 10*3/uL 0.19-0. 80 NEUTROPHILS, ABSOLUTE 4.81 10*3/uL 2.10- 8.00 EOSINOPHILS, ABSOLUTE 0.19 10*3/uL 0.00- 0.60 BASOPHILS, ABSOLUTE 0.05 10*3/uL 0.00-0. 20 Jul 25, 2024 11:27 AM [facility] COMPREHENSIVE METABOLIC PANEL PLASMA Specimen Type: PLASMA Comment: No hemolysis noted. Ordering Provider: STACY MCGHEE Report Released Date/Time: Jul 25, 2024 11:07 AM Reporting Lab: [facility] [address] [facility] [phone] Performing Lab: [facility] [address] [facility] [phone] CREATININE 0.74 mg/dL 0.6-1.1 UREA NITROGEN 12.0 mg/dL 9.0-25.0 GLUCOSE 91 mg/dL 72-99 SODIUM 138 meq/L 136-145 POTASSIUM 4.5 meq/L 3.5-5 CHLORIDE 106 meq/L 98-107 CARBON DIOXIDE 23 meq/L 22-31 CALCIUM 9.9 mg/dL 8.4-10.4 PROTEIN 7.7 g/dL 6-8.6 ALBUMIN 4.5 g/dL 3.4-5 TOTAL BILIRUBIN 1.4 mg/dL H 0.2-1.2 ALKALINE PHOSPHATASE 63 U/L 40-150 AST/SGOT 20 U/L 5-34 ALT/SGPT 11 U/L 8-40 EGFR (CKD-EPI 2020) 94.3 >60 Jul 25, 2024 11:21 AM [facility] URINALYSIS W/ CX REFLEX (STL-PB) URINE Specim en Type: URINE No comment entered. Ordering Provider: STACY MCGHEE Report Released Date/Time: Jul 25, 2024 11:07 AM Reporting Lab: [facility] [address] [facility] [phone] Performing Lab: [facility] [address] [facility] [phone] URINE COLOR [place] Yellow U.BILIRUBIN Negative mg/dL Negative U.PH 5.5 5.0-8.0 URINE RBC/HPF 3 /[HPF] 0-5 APPEARANCE Ex.Turbid Clear U.NITRITE Negative mg/dL Negative BACTERIA RARE /[HPF] Negative SQUAMOUS EPITH. 3 /[HPF] 0-5 MUCUS OCC /[LPF] Negative-Rare AMORPHOUS CRYSTALS MANY /[HPF] URN.GLUCOSE Normal mg/dL Negative URN.PROTEIN 20 mg/dL H URN.UROBILINOGEN Normal mg/dL Normal URN.BLOOD 1+ mg/dL H Negative-Trace URN.KETONES Negative mg/dL Negative-Trac e URN.LEUK.EST. Negative mg/dL Negative-Tr amara URN.SPECIFIC GRAVITY 1.022 Vital Signs: All taken on the encounter date This section contains inpatient and outpatient Vital Signs collected on the date of the Encounter. Date/Time Temperature Pulse Blood Pressure Respiratory Rate SP02 Pain Height Weight Body Mass Index Source Jul 25, 2024 10:09 AM 97.4 64 113/75 20 99 7 149.8 24 [facility] Social History: Smoking Status (Most current) and Tobacco Use (All prior to encounter date) This section includes the most current, and the historical, smoking and tobacco- related health factors from the [place] facility where the Encounter took place. Current Smoking Status This section includes the most current smoking, or tobacco-related health factor, from the [place] facility where the Encounter took place. Date/Time Current Smoking Status Comment Leigh ity Oct 29, 2021 02:00 PM VA-TOBACCO USER EVERY DAY [facility] Tobacco Use History This section includes a history of the smoking, or tobacco-related health factors, that were collected on or before the date of the Encounter. The data comes from the [place] facility where the Encounter took place. Date/Time Smoking Status/Tobacco Use Comment F acility Oct 29, 2021 02:00 PM VA-TOBACCO USE ADVICE . [facility] Oct 29, 2021 02:00 PM VA-TOBACCO USE RUBBER CURER NO . [facility] Oct 29, 2021 02:00 PM VA-TOBACCO USE MED NO . [facility] Oct 29, 2021 02:00 PM VA-TOBACCO USE WI 30 MIN OF WAKEUP . [facility] Oct 29, 2021 02:00 PM VA-TOBACCO USER EVERY DAY . [facility] Nov 27, 2020 03:00 PM VA-TOBACCO DOESNT USE WI 30 MIN WAKEUP [facility] Nov 27, 2020 03:00 PM VA-TOBACCO USE 30 YEARS OR MORE . [facility] Nov 27, 2020 03:00 PM VA-TOBACCO USE ADVICE [facility] Nov 27, 2020 03:00 PM VA-TOBACCO USE RUBBER CURER NO [facility] Nov 27, 2020 03:00 PM VA-TOBACCO USE MED NO [facility] Nov 27, 2020 03:00 PM VA-TOBACCO USER EVERY DAY [facility] Encounter Notes: All associated encounter notes This section contains the clinical notes associated to the Encounter. Date/Time Encounter Note(s) Provider Source Oct 15, 2024 05:10 PM ADDENDUM: LOCAL TITLE: Addendum STANDARD TITLE: ADDENDUM DATE OF NOTE: OCT 15, 2024@17:10:12 ENTRY DATE: OCT 15, 2024@17:10:13 AUTHOR: ZENA BURNS EXP COSIGNER: URGENCY: STATUS: COMPLETED pls take statin at bedtime, and if not really tolerated, take a short drug holiday and monitor symptoms. I ordered CPK to check for myopathy. /arianne/ ZENA BURNS MD Signed: 10/15/2024 17:11 Receipt Acknowledged By: 10/16/2024 09:18 /arianne/ NAEEM BERRY RN REGISTERED NURSE --- Original Document --- 10/09/24 ADMINISTRATIVE STL: pls let pt know : CT abd pelvis Impression: No significant urinary tract abnormalities. 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 /arianne/ ZENA BURNS MD Signed: 10/09/2024 11:19 Receipt Acknowledged By: 10/09/2024 16:21 /es/ NAEEM TEJADA MSN RN REGISTERED NURSE 10/09/2024 ADDENDUM STATUS: COMPLETED called pt regarding above. she is aware of these findings from her previous visit in July. She states she will discuss this fur[place] w/ Dr. Mcghee at her November appt. She did want to alert MD that the atorvastatin is causing gas and myalgias /arianne/ NAEEM TEJADA MSN RN REGISTERED NURSE Signed: 10/09/2024 16:23 Receipt Acknowledged By: 10/15/2024 17:09 /arianne/ ZENA [facility]URNS [facility] 09, 2024 04:22 PM ADDENDUM: LOCAL TITLE: Addendum STANDARD TITLE: ADDENDUM DATE OF NOTE: OCT 09, 2024@16:22:47 ENTRY DATE: OCT 09, 2024@16:22:48 AUTHOR: NAEEM TEJADA EXP COSIGNER: URGENCY: STATUS: COMPLETED called pt regarding above. she is aware of these findings from her previous visit in July. She states she will discuss this meliza adkins/ Dr. Mcghee at her November appt. She did want to alert MD that the atorvastatin is causing gas and myalgias /arianne/ NAEEM TEJADA MSN RN REGISTERED NURSE Signed: 10/09/2024 16:23 Receipt Acknowledged By: 10/15/2024 17:09 /es/ ZENA BURNS MD for STACY MCGHEE --- Original Document --- 10/09/24 ADMINISTRATIVE STL: pls let pt know : CT abd pelvis Impression: No significant urinary tract abnormalities. 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 /arianne/ ZENA BURNS MD Signed: 10/09/2024 11:19 Receipt Acknowledged By: 10/09/2024 16:21 /es/ NAEEM TJEADA MSN RN REGISTERED NURSE [facility] Oct 09, 2024 11:18 AM ADMINISTRATIVE NOT E: LOCAL TITLE: ADMINISTRATIVE STL STANDARD TITLE: ADMINISTRATIVE NOTE DATE OF NOTE: OCT 09, 2024@11:18 ENTRY DATE: OCT 09, 2024@11:18:57 AUTHOR: ZENA BURNS EXP COSIGNER: URGENCY: STATUS: COMPLETED ADMINISTRATIVE STL Has ADDENDA pls let pt know : CT abd pelvis Impression: No significant urinary tract abnormalities. 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 /arianne/ ZENA BURNS MD Signed: 10/09/2024 11:19 Receipt Acknowledged By: 10/09/2024 16:21 /es/ NAEEM TEJADA MSN RN REGISTERED NURSE 10/09/2024 ADDENDUM STATUS: COMPLETED called pt regarding above. she is aware of these findings from her previous visit in July. She states she will discuss this furthe w/ Dr. Mcghee at her November appt. She did want to alert MD that the atorvastatin is causing gas and myalgias /arianne/ NAEEM TEJADA MSN RN REGISTERED NURSE Signed: 10/09/2024 16:23 Receipt Acknowledged By: 10/15/2024 17:09 /es/ ZENA BURNS MD for STACY Robertson TAZ 10/15/2024 ADDENDUM STATUS: COMPLETED pls take statin at bedtime, and if not really tolerated, take a short drug holiday and monitor symptoms. I ordered CPK to check for myopathy. /arianne/ ZENA BURNS MD Signed: 10/15/2024 17:11 Receipt Acknowledged By: * AWAITING SIGNATURE * NAEEM TEJADA ARMIDA A [facility] Oct 09, 2024 11:15 AM PHYSICIAN LETTERS: LOCAL TITLE: TEST RESULT GENERAL LETTER ST STANDARD TITLE: PHYSICIAN LETTERS DATE OF NOTE: OCT 09, 2024@11:15 ENTRY DATE: OCT 09, 2024@11:15:49 AUTHOR: ZENA BURNS EXP COSIGNER: URGENCY: STATUS: COMPLETED [facility] [address] [place] [address] OCT 09, 2024 VANNESSA OCAMPO [address] [place] [id number] Dear Vannessa Ocampo, I would like to update you on your recent test results. CT SCAN ABdomen and Pelvis Report: Spiral axial imaging through the abdomen and pelvis was performed with and without IV contrast with multiplanar and 3-D reconstructions. Comparison: none Gallstones Liver: Benign hepatic cyst Spleen: normal Pancreas: normal Kidneys, ureters, bladder: normal Adrenal glands: No significant abnormality Retroperitoneum/aorta : Calcified plaque, caliber does not exceed 2.9 cm Peritoneum: No ascites. Skeleton: Small sclerotic areas in both superior femoral heads compatible with bilateral AVN The non urologic pelvic structures are unremarkable. Impression: No significant urinary tract abnormalities. 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 PLAN Please continue your treatment as discussed during your visit with Dr Stacy mcghee. If you have any questions please call your nurse case management. Thank you for choosing the [facility] for your healthcare. FUTURE APPOINTMENTS: 11/20/2024 14:00 [facility] IND CLR GOYEA 11/20/2024 14:30 [facility] PACT 2 PCP Sincerely, ZENA OCAMPO,ZENA ALVARADO [facility] Aug 07, 2024 08:42 AM PHYSICIAN LETTERS: LOCAL TITLE: TEST RESULT GENERAL LETTER ST STANDARD TITLE: PHYSICIAN LETTERS DATE OF NOTE: AUG 07, 2024@08:42 ENTRY DATE: AUG 07, 2024@08:42:49 AUTHOR: STACY MCGHEE EXP COSIGNER: URGENCY: STATUS: COMPLETED [facility] [address] [place] [address] AUG 07, 2024 VANNESSA OCAMPO [address] [place], [place] [id number] Dear Vannessa Ocampo, I would like to update you on your recent test results. LIPID PROFILE - High cholesterol and triglycerides (lipids) are risk factors for heart disease. Your cholesterol should fall between 140 and 200, and your triglycerides levels should be less than or equal to 150. HDL is the good cholesterol and should ideally be greater than 40. LDL is the bad cholesterol and optimal levels should be less than 100 (near optimal is between 100 and 129). TRIGLYCERIDE 128 mg/dL 07/25/2024 11:27 CHOLESTEROL 219 H mg/dL 07/25/2024 11:27 HDL(New) 38 L mg/dL 07/25/2024 11:27 CALCULATED LDL 155 mg/dL 07/25/2024 11:27 No DIRECT LDL EO data found These results are abnormal. Your lipid panel is elevated . I have sent atorvastatin 40mg 1/2 tablet once a day to your home to replace your lipids HEMOGLOBIN A1C - Gives us information about your diabetes (sugar or glucose) control over the past 3 months. Your target is to keep your A1C below 6 %. HGA1C 5.7 % 07/25/2024 11:27 These readings are within normal limits. CBC - A complete blood count (CBC) gives important information about the kinds and numbers of cells in the blood, especially red blood cells, white blood cells, and platelets. HGB 14.2 g/dL 07/25/2024 11:27 HEMATOCRIT 43.5 % H (07/25/24 11:27) PLT 353 10*3/uL 07/25/2024 11:27 WHITE BLOOD COUNT 8.8 10*3/uL (07/25/24 11:27) These readings are within normal limits. CHEM 7 - This is important information about the current status of your kidneys, liver, and electrolyte and acid/base balance as well as of your blood sugar and blood proteins. SODIUM 138 mEq/L 07/25/2024 11:27 POTASSIUM 4.5 mEq/L 07/25/2024 11:27 CHLORIDE 106 mEq/L 07/25/2024 11:27 UREA NITROGEN 12.0 mg/dL 07/25/2024 11:27 CREATININE 0.74 mg/dL 07/25/2024 11:27 CALCIUM 9.9 mg/dL 07/25/2024 11:27 CARBON DIOXIDE 23 mEq/L 07/25/2024 11:27 GLUCOSE 91 mg/dL 07/25/2024 11:27 EGFR (CKD-EPI 2020) 94.3 07/25/2024 11:27 These readings are within normal limits. LIVER FUNCTION PANEL - These are tests for liver function: PROTEIN 7.7 g/dL 07/25/2024 11:27 ALBUMIN 4.5 g/dL 07/25/2024 11:27 TOTAL BILIRUBIN 1.4 H mg/dL 07/25/2024 11:27 ALKALINE PHOSPHATASE 63 U/L 07/25/2024 11:27 AST/SGOT 20 U/L 07/25/2024 11:27 ALT/SGPT 11 U/L 07/25/2024 11:27 The results are similar to previous values and not a clinical concern. URINALYSIS - A urinalysis (or UA) is an array of tests performed on urine and one of the most common methods of medical diagnosis. URINALYSIS URINE COLOR [place] 07/25/2024 11:21 APPEARANCE Ex.Turbid 07/25/2024 11:21 U.PH 5.5 07/25/2024 11:21 U.BILIRUBIN Negative mg/dL 07/25/2024 11:21 U.NITRITE Negative mg/dL 07/25/2024 11:21 URINE RBC/HPF 3 /HPF 07/25/2024 11:21 BACTERIA RARE /HPF 07/25/2024 11:21 SQUAMOUS EPITH. 3 /HPF 07/25/2024 11:21 MUCUS OCC /LPF 07/25/2024 11:21 AMORPHOUS CRYSTALS MANY /HPF 07/25/2024 11:21 The results are similar to previous values and not a clinical concern. FUTURE APPOINTMENTS: 08/07/2024 11:00 [facility]- PC IND ST CLR GOYEA 11/07/2024 11:00 [facility]- CLR PACT 2 PCP Sincerely, VANNESSA GASTON INGRID D [facility] Jul 25, 2024 10:40 AM PRIMARY CARE NOTE: LOCAL TITLE: PRIMARY CARE PROVIDER ESTABLISHED VISIT ST STANDARD TITLE: PRIMARY CARE NOTE DATE OF NOTE: JUL 25, 2024@10:40 ENTRY DATE: JUL 25, 2024@10:40:33 AUTHOR: STACY MCGHEE EXP COSIGNER: URGENCY: STATUS: COMPLETED Patient is 59 and BLACK OR Self Identified Gender - Woman Reason for visit:Scheduled follow-up Chief Complaint: f/u History of Present Illness: Patient with hx of depression states her mood is the same and did not find wellbutrin to behelpful for help stop smoking . Patient states she has not been drinking alcohol for 1 month . Patient is working stopping smoking . Concern aboutsmoking with her patches on . Patient is not taking any med for hermood . Patietn states she wakes up feeling exhausted so she stoptaking the sleeping pill . Lower abdominal pain ( burning ) Tylenol forpain . Not dysuria and no hematuria Went to [place] [facility] in 04/2024 and told her ctscan showed gallstones and osteonecrosis of her hips She complains of lower back pain and bilaterally hip pain. She is not interested in surgery or PT Problem List: 1) Sciatica 2) Chronic depression [...] Medications (excluding Supplies): Active Outpatient Medications Status 1) AMLODIPINE BESYLATE 5MG TAB TAKE ONE TABLET BY MOUTH ONCE A ACTIVE DAY Indication: FOR HIGH BLOOD PRESSURE 2) BUPROPION HCL 150MG 12HR SA TAB TAKE TWO TABLETS BY MOUTH ACTIVE ONCE A DAY SWALLOW WHOLE - DO NOT CRUSH OR CHEW. Indication: FOR DEPRESSION 3) LIDOCAINE 5% PATCH APPLY 1 PATCH TO SKIN SITE ONCE A DAY ACTIVE APPLY PATCH AND PRESS FIRMLY FOR 10-15 SECONDS. KEEP ON FOR 12 HOURS THEN REMOVE PATCH FOR 12 HOURS. Indication: FOR LOCAL ANESTHESIA 4) NALTREXONE (EQV-REVIA) 50MG TAB TAKE ONE-HALF TABLET BY HOLD MOUTH ONCE A DAY Indication: FOR ASSISTANCE WITH DEPENDENCY 5) ZOLPIDEM TARTRATE 5MG TAB TAKE ONE-HALF TABLET BY MOUTH AT ACTIVE BEDTIME NEEDED (TAKE IMMEDIATELY BEFORE BEDTIME DUE TO RAPID ONSET OF ACTION) Indication: FOR INSOMNIA Active Non-VA Medications Status 1) Non-VA AMLODIPINE BESYLATE 5MG TAB 5MG BY MOUTH ONCE A DAY ACTIVE 2) Non-VA METOPROLOL SUCCINATE 200MG SA TAB 100MG BY MOUTH ONCE ACTIVE A DAY 7 Total Medications Physical Exam VITALS (most recent, as listed in the electronic record): B/P: 113/75 (07/25/2024 10:09) Pulse: 64 (07/25/2024 10:09) Temperature: 97.4 F [36.3 C] (07/25/2024 10:09) Weight: 149.8 lb [67.95 kg] (07/25/2024 10:09) Height: 66 in [167.6 cm] (09/21/2022 11:07) BMI: 24.2 Pain: 7 (07/25/2024 10:09) (0-10 scale) General: WD, WN in NAD, [...] Normal curvature and mobility. No CVA tenderness. Extremities: No edema, pedal pulses intact Data Review: HGA1C 5.3 % 03/09/2024 09:42 Lipid Panel: TRIGLYCERIDE 137 mg/dL 03/09/2024 09:42 CHOLESTEROL 220 H mg/dL 03/09/2024 09:42 HDL(New) 37 L mg/dL 03/09/2024 09:42 CALCULATED LDL 156 mg/dL 03/09/2024 09:42 CMP: SODIUM 141 mEq/L 03/09/2024 09:42 POTASSIUM 4.1 mEq/L 03/09/2024 09:42 CHLORIDE 107 mEq/L 03/09/2024 09:42 UREA NITROGEN 13.3 mg/dL 03/09/2024 09:42 CREATININE 0.67 mg/dL 03/09/2024 09:42 CALCIUM 10.0 mg/dL 03/09/2024 09:42 PROTEIN 7.6 g/dL 03/09/2024 09:42 ALBUMIN 4.4 g/dL 03/09/2024 09:42 ALKALINE PHOSPHATASE 67 U/L 03/09/2024 09:42 ALT/SGPT 11 U/L 03/09/2024 09:42 AST/SGOT 23 U/L 03/09/2024 09:42 TOTAL BILIRUBIN 0.9 mg/dL 03/09/2024 09:42 CARBON DIOXIDE 24 mEq/L 03/09/2024 09:42 GLUCOSE 86 mg/dL 03/09/2024 09:42 EGFR (CKD-EPI 2020) 102.5 03/09/2024 09:42 CBC: WBC 8.3 10*3/uL 03/09/2024 09:42 RBC 4.71 10*6/uL 03/09/2024 09:42 HGB 13.6 g/dL 03/09/2024 09:42 HCT 41.7 % 03/09/2024 09:42 MCV 88.5 fL 03/09/2024 09:42 MCH 28.9 pg 03/09/2024 09:42 MCHC 32.6 L g/dL 03/09/2024 09:42 RDW 12.8 % 03/09/2024 09:42 PLT 337 10*3/uL 03/09/2024 09:42 MPV 9.6 fL 03/09/2024 09:42 NEUTROPHILS, AUTO % 59 % 03/09/2024 09:42 LYMPHOCYTES, AUTO % 33 % 03/09/2024 09:42 MONOCYTES, AUTO % 7 % 03/09/2024 09:42 EOSINOPHILS, AUTO % 1 % 03/09/2024 09:42 BASOPHILS, AUTO % 1 % 03/09/2024 09:42 NEUTROPHILS, ABSOLUTE 4.92 10*3/uL 03/09/2024 09:42 LYMPHOCYTES, ABSOLUTE 2.72 10*3/uL 03/09/2024 09:42 MONOCYTES, ABSOLUTE 0.57 10*3/uL 03/09/2024 09:42 EOSINOPHILS, ABSOLUTE 0.06 10*3/uL 03/09/2024 09:42 BASOPHILS, ABSOLUTE 0.04 10*3/uL 03/09/2024 09:42 PSA: No PSA EO data found TSH: TSH 0.252 L uIU/mL 03/09/2024 09:42 UA: No URINALYSIS EO data found Vitamin D: VITAMIN D, 25-HYDROXY 42.2 ng/mL 03/09/2024 09:42 Micral/Creat Profile: No data available Result: Acceptable Follow-up Action: Data results reviewed with patient and/or caregiver. Assessment/Plan: 1 . insomnia - not on ambietn - encourage patient to f/u with M 2 Chronic depression d/o - not on any medicaiton - f/u with MH 3 LLQ PAIN -- will treat empirically for diverticulitis - Augmentin 876 mg po bid x 10 #20 - ordered ctscan of abd/pelvis-check cbc cmp andlipid s and tsh 4 recurrent UTI - check ua and urine culture 5 back pain - declines PT - order l/s spine keren 6 hip pain - xray left hip 7 htn - stable on amlodipine - check cmp and lipids RTC: 3 months CLINICAL REMINDERS COMPLETED /arianne/ STACY MCGHEE Signed: 07/25/2024 11:19 STACY MCGHEE [facility] Jul 25, 2024 10:10 AM NURSING NOTE: LOCAL TITLE: V15 PACT FACE TO FACE NOTE STL STANDARD TITLE: NURSING NOTE DATE OF NOTE: JUL 25, 2024@10:10 ENTRY DATE: JUL 25, 2024@10:10:31 AUTHOR: KONG DE LA ROSA EXP COSIGNER: URGENCY: STATUS: COMPLETED Provider Visit: Patient Identifiers : Full Name Date of Reason for visit: Established Follow-Up Mode of Arrival: Ambulatory Allergy Review: Patient has answered NKA Allergy list reviewed and remains current. Recent Vital Signs: Temperature: 97.4 F [36.3 C] (07/25/2024 10:09) Pulse: 64 (07/25/2024 10:09) Respiration: 20 (07/25/2024 10:09) B/P: 113/75 (07/25/2024 10:09) Pain: 7 (07/25/2024 10:09) Wt: 149.8 lb [67.95 kg] (07/25/2024 10:09) Ht: 66 in [167.6 cm] (09/21/2022 11:07) BMI: 24.2 POX: 99% (07/25/2024 10:09) PERSONAL HEALTH INVENTORY Notes: No data available for PHI note titles PERSONAL HEALTH INVENTORY - MAP: 06/08/2022 Personal Health Plan [place], [place], [place] (MAP) MAKING SURE MY CHILDREN ARE HAPPY MATTERS MOST TO ME. 12/29/2020 Personal Health Plan [place], [place], [place] (MAP) My family. What matters most to you in your life right now? --- [place]'s Response: MY CHILDREN Would you like to discuss any personal problem, family problem, alcohol use, drug use, or a mental or emotional illness? No My [facility] ([facility]), please select appointment type: Face to face: Yes-Do you have an upgraded (Premium) account which gives you the added benefit of Secure Messaging with your Primary Care Provider and refilling your prescriptions online? Yes- Done Contact provided Primary Care phone number and encouraged to call if any questions or concerns. Review that after hours nurse line [phone] and emergency room are available 01/11 for patient use. Contact verbalized good understanding. Alcohol Use Screen (AUDIT-C) - V: Alcohol Screen: SCREEN FOR ALCOHOL (AUDIT-C) An alcohol screening test (AUDIT-C) was positive (score=5). 1. How often did you have a drink containing alcohol in the past year? Consider a drink to be a 12 ounce can or bottle of regular beer, 8 ounces of malt liquor, a 5 ounce glass of table wine, or a 1.5 ounce shot of liquor (like scotch, gin, or vodka). Four or more times a week 2. How many drinks containing alcohol did you have on a typical day when you were drinking in the past year? Three or four drinks 3. How often did you have 4 or more drinks on one occasion in the past year? Never Licensed Independent Provider notified of positive screen and need for follow-up. Name of provider notified: DR MCGHEE /arianne/ KONG DE LA ROSA LICENSED PRACTICAL NURSE Signed: 07/25/2024 10:15 KONG DE LA ROSA [facility]
== END 2024-11-21 11:26 | disposition home or self-care (01) ==
PROVIDERS: PCP Family Medicine Adolescent Medicine; Visit Provider Nurse Practitioner Family
DX: K80.20 Calculus of gallbladder without cholecystitis without obstruction (principal); K57.90 Diverticulosis of intestine, part unspecified, without perforation or abscess without bleeding; Z87.442 Personal history of urinary calculi
CPT/HCPCS: 74176